=== PATIENT | female | born 1965 | race Caucasian/White ===

== ENCOUNTER 2016-06-20 10:25 | Inpatient (IN) | payer SELFPAY ==
[2016-06-20] VITALS (7 sets, daily range): BP systolic 101–121; BP diastolic 57–68; PULSE 64–78; RESP 16–18; TEMP 97.6–98.8; O2SAT 87–99
[~2016-06-20] VITALS: Ht 170.2 cm; Wt 70.0 kg
[~2016-06-20 10:25] MED LIST: BACT800T5 PO; CLIN1CAP6 PO; DIAZ10TA PO; DILA8TAB4 PO; SOMA350T PO
[2016-06-20] MEDS ORDERED: SODIUM CHLOR 0.9% 1000 ML INJ 1,000 ML IV SCH (11:29)
[2016-06-20] MEDS ORDERED: SODIUM CHLORIDE 0.9% FLUSH 10 ML FLUSH IV FLUSH PRN (11:30)
[2016-06-20] MEDS ORDERED: CLINDAMYCIN INJ 900 MG in SODIUM CHLORIDE 0.9% INJ 100 ML IV ONE (11:30)
--- NOTE | 2016-06-20 11:38 | PD ---
HPI Chief Complaint: Skin Problem Time Seen by Provider: 11:34 (Marques Foster) Time Seen by Provider: 11:18 (Shira Lehman DO) Travel History International Travel<30 days: No Contact w/Intl Traveler<30days: No Traveled to known affect area: No (Marques Foster) History of Present Illness HPI Patient comes in for evaluation of a abscess over left wrist since first noticed 3 days ago. Patient states she's been "poking and prodding" it, but denies doing anything else for it. Patient reports that she has been injecting Dilaudid and believes that she missed which is what caused the abscess. Patient denies any fevers, chest pain, shortness of breath, numbness or tingling anywhere. Patient has pain is aching/burning like around abscess radiates proximally. Pain is worse certain movement of the wrist. Patient states that she did vomit last night unusual for her. Patient reports she took Soma and injected Dilaudid today. Patient appears sleepy on exam but is answering questions appropriately. (Marques Foster) [facility] Past Medical History Arthritis: Yes (RA) Asthma: No Autoimmune Disease: No Blood Disorders: No Anxiety: Yes Depression: Yes Heart Rhythm Problems: No Cancer: No Cardiovascular Problems: No High Cholesterol: No Chemotherapy: No Chest Pain: No Congestive Heart Failure: No COPD: No Cerebrovascular Accident: No Diabetes: No Diminished Hearing: No Endocrine: No Gastrointestinal Disorders: No GERD: No Glaucoma: No Genitourinary: No Headaches: No Hepatitis: No Hiatal Hernia: No Hypertension: No Immune Disorder: No Implanted Vascular Access Dvce: No Kidney Stones: No Musculoskeletal: Yes (CHRONIC BACK PAIN and neck pain) Neurologic: No Psychiatric: Yes Reproductive: No Respiratory: No Integumentary: Yes (mrsa) Migraines: No Myocardial Infarction: No Radiation Therapy: No Renal Failure: No Seizures: No Sickle Cell Disease: No Sleep Apnea: No Thyroid Disease: No Ulcer: No Tetanus Vaccination: < 5 Years Influenza Vaccination: Yes ?: Not : 9 Para: 1 : 8 (Marques Foster) Past Surgical History Abdominal Surgery: No AICD: No Appendectomy: No Arteriovenous Shunt: No Cardiac Surgery: No Cholecystectomy: No Ear Surgery: No Endocrine Surgery: No Eye Surgery: No Genitourinary Surgery: No Gynecologic Surgery: Yes (fibroid tumor removed, HYSTERECTOMY) Hysterectomy: Yes (partial) Insulin Pump: No Joint Replacement: Yes Neurologic Surgery: No Oral Surgery: No Pacemaker: No Thoracic Surgery: No Other Surgery: Yes (FIBROID TUMOR REMOVED.,left arm/wrist) (Marques Foster) Social History Alcohol Use: No Tobacco Use: Yes (1/2 ppd) Substance Use: Yes (dilaudid, soma took them today) (Marques Foster) Allergies-Medications (Allergen,Severity, Reaction): Coded Allergies: Morphine (Verified Allergy, Unknown, SWELLING, 06/20/16) *MDRO Multi-Drug Resistant Organism (Unverified Adverse Reaction, Unknown , 06/20/16) MRSA (arm wound) - 01/2009 & 02/2014 Reported Meds & Prescriptions Reported Meds & Active Scripts Active Active Prescriptions or Reported Medications Unobtainable (Shira Lehman DO) Review of Systems Except as stated in HPI: all other systems reviewed are Neg (Marques Foster ) Physical Exam Narrative GENERAL: Well-developed, overly nourished, in no acute distress, and non-ill appearing. Sleeping on exam but answers questions appropriately. SKIN: Patient is a drained abscess noted on the dorsal aspect of her left wrist is mildly tender to palpation. There is mild surrounding cellulitis. There is no crepitus or fluctuation. There is no obvious foreign body. HEAD: Atraumatic. Normocephalic. EYES: Pupils equal and round. EOMI. No scleral icterus. No injection or drainage. ENT: No nasal bleeding or discharge. Mucous membranes pink and moist. NECK: Trachea midline. Supple. No nuclear rigidity. CARDIOVASCULAR: Regular rate and rhythm. No murmur appreciated. Radial pulses 2+, tach, and equal bilaterally. Capillary refill less than 2 seconds. RESPIRATORY: No accessory muscle use. No respiratory distress. Clear to auscultation. Breath sounds equal bilaterally. Patient is noted to be 97% on room air. GASTROINTESTINAL: Abdomen soft, non-tender, nondistended. Hepatic and splenic margins not palpable. Normal bowel sounds 4. No pulsatile mass. MUSCULOSKELETAL: No obvious deformities. No clubbing. No cyanosis. No edema. Full range of motion. Wrist: FROM and equal BL with passive flexion, extension, and pronation/supination. Capillary refill less than 2 seconds distal to injury and equal BL. FROM distal to injury and equal BL. Strength distal to injury equal BL. NV intact distal to injury. Flexion and extension of thumb equal BL. Equal strength and movement with abduction/adductions of BL fingers. Laundry Tub Maker strength equal BL. No tenderness to the anatomical snuffbox. Home monitoring device noted right lower extremity. NEUROLOGICAL: Awake and alert. No obvious cranial nerve deficits. Motor grossly within normal limits. Normal speech. PSYCHIATRIC: Appropriate mood and affect; insight and judgment normal. (Marques Foster) Data Data Last Documented VS Vital Signs Date Time Temp Pulse Resp B/P Pulse Ox O2 Delivery O2 Flow Rate FiO2 06/20/16 12:42 71 18 99 06/20/16 11:28 107/57 Room Air 06/20/16 10: 97.6 (Shira Lehman DO) Orders Basic Metabolic Panel (Bmp) (06/20/16 11:29) Complete Blood Count With Diff (06/20/16 11:29) Iv Access Insert/Monitor (06/20/16 11:29) Ecg Monitoring (06/20/16 11:29) Oximetry (06/20/16 11:29) Sodium Chlor 0.9% 1000 Ml Inj (Ns 1000 M (06/20/16 11:29) Sodium Chloride 0.9% Flush (Ns Flush) (06/20/16 11:30) Chest, Single Ap (06/20/16 11:29) Wrist, Complete ([id number]) (06/20/16 ) Wound Culture And Gram Stain (06/20/16 11:29) Clindamycin Inj (Cleocin Inj) (06/20/16 11:30) Westergren Sedimentation Rate (06/20/16 13:12) C-Reactive Protein (Crp) (06/20/16 13:12) Blood Culture (06/20/16 13:48) Ob/Psych Drug Screen, Urine (06/20/16 13:48) Admit Order (Ed Use Only) (06/20/16 13:50) Complete Blood Count With Diff (06/21/16 06:00) Consult Pt Eval & Treat (06/20/16 13:49) Code Status (06/20/16 13:49) Scd Bilateral/Knee High JING.QSHIFT (06/20/16 13:49) Nursing Bedside Swallow Assess .ONCE (06/20/16 13:49) Ur Bath Salts (06/20/16 11:30) Ur Heroin (06/20/16 11:30) Ur K2 Spice (06/20/16 11:30) Ur Ecstasy (06/20/16 11:30) Ur Methadone (06/20/16 11:30) Phencyclidine Urine (Pcp) (06/20/16 11:30) (Shira Lehman DO) Labs Laboratory Tests Test 06/20/16 11:30 White Blood Count 6.1 TH/MM3 Red Blood Count 3.97 MIL/MM3 Hemoglobin 11.6 GM/DL Hematocrit 34.7 % Mean Corpuscular Volume 87.2 FL Mean Corpuscular Hemoglobin 29.1 PG Mean Corpuscular Hemoglobin 33.4 % Concent Red Cell Distribution Width 14.6 % Platelet Count 152 TH/MM3 Mean Platelet Volume 9.8 FL Neutrophils (%) (Auto) 62.2 % Lymphocytes (%) (Auto) 21.4 % Monocytes (%) (Auto) 10.4 % Eosinophils (%) (Auto) 5.5 % Basophils (%) (Auto) 0.5 % Neutrophils # (Auto) 3.8 TH/MM3 Lymphocytes # (Auto) 1.3 TH/MM3 Monocytes # (Auto) 0.6 TH/MM3 Eosinophils # (Auto) 0.3 TH/MM3 Basophils # (Auto) 0.0 TH/MM3 CBC Comment DIFF FINAL Differential Comment Erythrocyte Sedimentation Rate 37 mm/hr Sodium Level 139 MEQ/L Potassium Level 4.4 MEQ/L Chloride Level 102 MEQ/L Carbon Dioxide Level 31.4 MEQ/L Anion Gap 6 MEQ/L Blood Urea Nitrogen 15 MG/DL Creatinine 0.81 MG/DL Estimat Glomerular Filtration 74 ML/MIN Rate Random Glucose 89 MG/DL Calcium Level 9.2 MG/DL C-Reactive Protein 4.90 MG/DL B-Type Natriuretic Peptide 19 PG/ML Urine Opiates Screen POS Urine Barbiturates Screen NEG Urine Amphetamines Screen NEG Urine Benzodiazepines Screen POS Urine Cocaine Screen NEG Urine Cannabinoids Screen NEG (Shira Lehman DO) [facility] Medical Decision Making Medical Screen Exam Complete: Yes Emergency Medical Condition: Yes Differential Diagnosis Abscess, cellulitis, aspiration pneumonia, electrolyte abnormality, other Narrative Course On re-evaluation patient is sleeping comfortably in bed in no acute distress. O2 is noted to 100% in room air. Patient is awoken easily denies any known recent Narcan administration or current antibiotic use. Discussed patient with Dr. Lehman, who saw and evaluate patient recommends checking a sedimentation rate, CRP, and admitting patient for observation. Discussed all findings and plan care of patient was agreeable for admission. All questions were answered. Patient remained stable through ED course. (Marques Foster) Diagnosis Primary Impression: Pulmonary edema Qualified Code: J81.0 - Acute pulmonary edema Additional Impressions: Abscess IVDU (intravenous drug user) Admitting Information Admitting Physician Requests: Observation (Marques Foster) Scripts Unable to Obtain Active Prescriptions or Reported Meds Condition: Stable Marques Foster June 20, 2016 11:38 Shira Lehman DO June 20, 2016 21:28
[2016-06-20 12:04] LABS: AUTOMATED NEUTROPHIL # 3.8 TH/MM3 (1.8-7.7); BASOPHIL % 0.5 % (0.0-2.0); EOSINOPHIL # 0.3 TH/MM3 (0-0.4); EOSINOPHIL % 5.5 % (0.0-4.0); HEMATOCRIT 34.7 % (35.0-46.0); HEMO FLAGS DIFF FINAL; LYMPH % 21.4 % (9.0-44.0); LYMPHOCYTE # 1.3 TH/MM3 (1.0-4.8); MEAN CELL VOLUME 87.2 FL (80.0-100.0); MEAN CORPUSCULAR HEMOGLOBIN 29.1 PG (27.0-34.0); MEAN CORPUSCULAR HGB CONC 33.4 % (32.0-36.0); MONO % 10.4 % (0.0-8.0); NEUT % 62.2 % (16.0-70.0); PLATELET COUNT 152 TH/MM3 (150-450); RED BLOOD COUNT 3.97 MIL/MM3 (4.00-5.30); RED CELL DISTRIBUTION WIDTH 14.6 % (11.6-17.2); WHITE BLOOD COUNT 6.1 TH/MM3 (4.0-11.0)
--- NOTE | 2016-06-20 12:06 | RADRPT ---
EXAM DATE/TIME: 06/20/2016 11:53 [facility] COMPARISON: CHEST SINGLE AP, May 26, 2015, 12:59. INDICATIONS : Vomiting since last night. MEDICAL HISTORY : Methicillin-resistant Staphylococcus aureus. Hepatitis. SURGICAL HISTORY : Hysterectomy. Fusion, cervical. ENCOUNTER: Initial ACUITY: 1 day PAIN SCORE: 8/10 LOCATION: Bilateral chest FINDINGS: Study is abnormal. There is background of interstitial changes in both lungs. Heart is appropriate in size. There is no consolidation or pneumothorax. CONCLUSION: Abnormal chest with prominent interstitium. Considerations would include cardiogenic pulmonary edema , noncardiogenic pulmonary edema, and a inflammatory process. Alan Bae MD FACR on June 20, 2016 at 12:03 Board Certified Radiologist. This report was verified electronically.
--- NOTE | 2016-06-20 12:07 | RADRPT ---
EXAM DATE/TIME: 06/20/2016 11:57 [facility] COMPARISON: No previous studies available for comparison. INDICATIONS : Posterior left wrist wound for 3 days. MEDICAL HISTORY : Methicillin-resistant Staphylococcus aureus. Hepatitis. SURGICAL HISTORY : Hysterectomy. Fusion, cervical. ENCOUNTER: Initial ACUITY: 3 days PAIN SCORE: 8/10 LOCATION: Left wrist. FINDINGS: There is generalized soft tissue swelling without fracture or radiopaque foreign body. CONCLUSION: Generalized soft tissue swelling. Alan Bae MD FACR on June 20, 2016 at 12:04 Board Certified Radiologist. This report was verified electronically.
[2016-06-20 12:17] LABS: BICARBONATE 31.4 MEQ/L (21.0-32.0); POTASSIUM 4.4 MEQ/L (3.5-5.1)
--- NOTE | 2016-06-20 13:58 | HHI.HP ---
[facility] Service Family Medicine Primary Care Physician No Primary Care Physician Admission Diagnosis Abscess and cellulitis Diagnoses: International Travel<30 Days: No Contact w/Intl Traveler<30days: No Known Affected Area: No History of Present Illness 51 year old female IV drug user admitted for left wrist abscess and cellulitis. She is a poor historian due to inattention and drowsiness; admits to taking Soma today and Xanax yesterday. She states she came to the ER not for the infection but for difficulty swallowing, nausea, vomiting, and shortness of breath. She states it began "with dinner" but she is not able to tell me how many days ago that was but since then she has been scared to drink or eat. As far as the infection, she states it started out as a small pustule about three days ago and has since worsened and turned into an abscess. She states she squeezed it and yellow, malodorous pus was expelled with force. She endorses chills unsure if she's had fever; she denies chest pain, palpitations, lower extremity edema, or rash anywhere else. She admits to IV Dilaudid use but is vague about frequency; she believes the last use was about four days ago and she uses maybe once a week. Last injection site was left wrist; she states she doesn't have any more veins to use. She denies injecting in her feet or ankles. The only other drugs she admits to are Soma and Xanax as stated prior. Denies any other opiates or cocaine. Currently she denies pain. Review of Systems Constitutional: COMPLAINS OF: Chills, DENIES: Fever Eyes: DENIES: Blurred vision Respiratory: COMPLAINS OF: Shortness of breath, DENIES: Cough Cardiovascular: COMPLAINS OF: Palpitations, Dyspnea on Exertion, DENIES: Chest pain, Syncope, Lower Extremity Edema Gastrointestinal: COMPLAINS OF: Nausea, Vomiting, DENIES: Abdominal pain, Black stools, Bloody stools, Diarrhea Musculoskeletal: DENIES: Joint pain Integumentary: DENIES: Rash Hematologic/lymphatic: COMPLAINS OF: Bruising Neurologic: COMPLAINS OF: Headache, DENIES: Seizures Past Family Social History Past Medical History IV drug use Cervical spondylosis Past Surgical History Uterine fibroidectomy Reported Medications None prescribed Obtains Soma and Xanax from her sister Allergies: Coded Allergies: Morphine (Verified Allergy, Unknown, SWELLING, 06/20/16) *MDRO Multi-Drug Resistant Organism (Unverified Adverse Reaction, Unknown , 06/20/16) MRSA (arm wound) - 01/2009 & 02/2014 Active Ordered Medications Acetaminophen (Tylenol) 500 mg Q4H PRN PO; Start 06/20/16 at 14:00 Clindamycin Phosphate 900 mg/ Sodium Chloride 106 ml @ 200 mls/hr ONCE ONCE IV Last administered on 06/20/16 12:49; Admin Dose 200 MLS/HR; Start 06/20/16 at 11:30; Stop 06/20/16 at 12:01; Status DC Ibuprofen (Motrin) 600 mg Q8HR PO; Start 06/20/16 at 14:00 Pharmacy Profile Note (Vancomycin Consult Pharmacy) 0 ml @ 0 mls/hr UNSCH OTHER ; Start 06/20/16 at 14:00 Sodium Chloride (NS 1000 ml Inj) 1,000 ml @ 1,000 mls/hr Q1H IV Last administered on 06/20/16 12:22; Admin Dose 1,000 MLS/HR; Start 06/20/16 at 11: 29; Stop 06/20/16 at 12:28; Status DC Sodium Chloride 2 ml 2 ml UNSCH PRN IV FLUSH; Start 06/20/16 at 11:30 Vancomycin HCl 1000 mg/Sodium Chloride 250 ml @ 250 mls/hr Q24H IV; Start 06/20 at 14:00 Family History Mother: alive, HTN Father: alive, alcoholism Social History Lives with friend EtOH: denies Tobacco: 1 PPD x 40 years Illicit drug use: IV Dilaudid, Soma, Xanax Physical Exam Vital Signs Vital Signs Date Time Temp Pulse Resp B/P Pulse Ox O2 Delivery O2 Flow Rate FiO2 06/20/16 12:42 71 18 99 06/20/16 11:28 73 16 107/57 97 Room Air 06/20/16 10:28 97.6 78 18 105/58 95 Physical Exam GENERAL: Drowsy, disheveled female sitting up in bed in no acute distress. SKIN/LYMPH: Multiple injection sites over arms. Radial aspect of left dorsal wrist with open abscess and surrounding erythema; purulent material able to be expressed. No epitrochlear or axillary lymphadenopathy. HEENT: Atraumatic. Normocephalic. Pinpoint pupils bilaterally. Opens eyes sluggishly. Extraocular motions intact. No scleral icterus. No injection or drainage. Nose without bleeding or purulent drainage. Throat without erythema, tonsillar hypertrophy or exudate. Mucous membranes dry. Uvula midline. Airway patent. NECK: Trachea midline. No JVD or lymphadenopathy. Supple, nontender, no meningeal signs. CARDIOVASCULAR: Regular rate and rhythm with 1/6 systolic ejection murmur. RESPIRATORY: Left basilar crackles otherwise clear without wheezes. GASTROINTESTINAL: Abdomen soft, nontender, nondistended. No hepatosplenomegaly or palpable masses. No guarding. MUSCULOSKELETAL: No lower extremity edema. Able to wiggle all fingers and make a first. Electronic monitoring device over right ankle. NEUROLOGICAL: Drowsy. Slurred speech. Laboratory Laboratory Tests Test 06/20/16 11:30 White Blood Count 6.1 Red Blood Count 3.97 Hemoglobin 11.6 Hematocrit 34.7 Mean Corpuscular Volume 87.2 Mean Corpuscular Hemoglobin 29.1 Mean Corpuscular Hemoglobin 33.4 Concent Red Cell Distribution Width 14.6 Platelet Count 152 Mean Platelet Volume 9.8 Neutrophils (%) (Auto) 62.2 Lymphocytes (%) (Auto) 21.4 Monocytes (%) (Auto) 10.4 Eosinophils (%) (Auto) 5.5 Basophils (%) (Auto) 0.5 Neutrophils # (Auto) 3.8 Lymphocytes # (Auto) 1.3 Monocytes # (Auto) 0.6 Eosinophils # (Auto) 0.3 Basophils # (Auto) 0.0 CBC Comment DIFF FINAL Differential Comment Erythrocyte Sedimentation Rate 37 Sodium Level 139 Potassium Level 4.4 Chloride Level 102 Carbon Dioxide Level 31.4 Anion Gap 6 Blood Urea Nitrogen 15 Creatinine 0.81 Estimat Glomerular Filtration 74 Rate Random Glucose 89 Calcium Level 9.2 Date/Time Procedure Status Source Growth 06/20/16 11:30 Gram Stain Received Wound Wrist Pending 06/20/16 11:30 Wound Culture Received Wound Wrist Pending Result Diagram: 06/20/16 1130 06/20/16 1130 Imaging Chest X-Ray 06/20/16 1129 Signed Impressions: Service Date/Time: Monday, June 20, 2016 11:53 - CONCLUSION: Abnormal chest with prominent interstitium. Considerations would include cardiogenic pulmonary edema, noncardiogenic pulmonary edema, and a inflammatory process. Alan Bae MD FACR Wrist X-Ray 06/20/16 0000 Signed Impressions: Service Date/Time: Monday, June 20, 2016 11:57 - CONCLUSION: Generalized soft tissue swelling. Alan Bae MD FACR Septic Shock Reassessment Heart: Regular rate and rhythm, Murmur Lungs: Crackles Skin: Warm Assessment and Plan Assessment and Plan 51 year old female IV drug user admitted for left wrist abscess and cellulitis. She does not meet sepsis criteria. She will be treated with IV vancomycin while blood and wound cultures are pending. Code Status FULL Discussed Condition With Dr. Cabral and Dr. Tavera Problem List: (1) Abscess Status: Acute Plan: Left dorsoradial wrist with open, draining abscess. Blood and wound cultures obtained. Wrist XR showing soft tissue swelling. - Slightly elevated ESR otherwise normal white count, afebrile, no tachycardia, or fever - Received Clindamycin x 1 in the ER - Vancomycin 1 g IV Q12H with pharm consult - Motrin 600 mg PO Q8H scheduled - Tylenol PRN fever - Toradol 30 mg IV Q6H PRN breakthrough pain - Avoid narcotics (2) Pulmonary edema Status: Acute Plan: CXR with interstitial changes in both lungs concerning for pulmonary edema and she did endorse some symptoms of shortness of breath. Patient maintaining adequate oxygenation on room air. Exam notable for crackles. Unclear etiology. - Lasix 40 mg PO x 1 - Check BNP - 1/6 ANA murmur on exam in an IV drug user. Check 2D echo (3) Nutrition, metabolism, and development symptoms Status: Acute Plan: - Fluids: Tolerating PO - Electrolytes: WNL - Nutrition: Regular diet - DVT prophylaxis: Lovenox 40 mg SQ daily Physician Certification 2 Midnight Certification Type: Admission for Inpatient Services Order for Inpatient Services The services are ordered in accordance with Medicare regulations or non- Medicare payer requirements, as applicable. In the case of services not specified as inpatient-only, they are appropriately provided as inpatient services in accordance with the 2-midnight benchmark. Estimated LOS (days): 3 days is the estimated time the patient will need to remain in the hospital, assuming treatment plan goals are met and no additional complications. Post-Hospital Plan: Vivian Grayson MD June 20, 2016 13:58
[2016-06-20] MEDS ORDERED: Vancomycin Consult Pharmacy 1 EA OTHER SCH (14:00)
[2016-06-20] MEDS ORDERED: ACETAMINOPHEN 500 MG CPLT PO PRN (14:00)
[2016-06-20] MEDS ORDERED: VANCOMYCIN INJ 1,000 MG in SODIUM CHLOR 0.9% 250 ML INJ 250 ML IV SCH (14:00)
[2016-06-20 14:05] LABS: AMPHETAMINE, URINE NEG (NEG); BARBITURATES, URINE NEG (NEG); COCAINE, URINE NEG (NEG)
[2016-06-20] MEDS ORDERED: KETOROLAC TROMETHAMINE 30 MG/ML (IVP) VIAL IV PUSH PRN (14:30)
[2016-06-20] MEDS ORDERED: FUROSEMIDE 40 MG TAB PO ONE (14:30)
[2016-06-20] MEDS: IBUPROFEN 600 MG TAB PO SCH ×2 (14:46→21:06)
[2016-06-20] MEDS ORDERED: ENOXAPARIN SODIUM 40 MG/0.4 ML SYRINGE SQ SCH (15:00)
--- NOTE | 2016-06-20 17:48 | EC ---
Study Study Date:06/20/2016 STUDY CONCLUSIONS SUMMARY - Left ventricle: The cavity size was normal. Wall thickness was normal. Systolic function was normal. The estimated ejection fraction was 60%. Wall motion was normal; there were no regional wall motion abnormalities. - Tricuspid valve: Mild regurgitation. - Pulmonary arteries: PA peak pressure: 31mm Hg (S). If LV function is below 40, please consider prescribing an ACEI or ARB or document rationale for non-use. PROCEDURE DATA STUDY STATUS: Elective. Procedure: Transthoracic echocardiography. Image quality was good. Scanning was performed from the parasternal, apical, and subcostal acoustic windows. Study completion: The patient tolerated the procedure well. Transthoracic echocardiography. M-mode, complete 2D, complete spectral Doppler, and color Doppler. Height: Height: 67in. Weight: Weight: 144.7lb. Body mass index: BMI: 22.7kg/m^2. Body surface area: BSA: 1.76m^2. Patient status: Inpatient. CARDIAC ANATOMY LEFT VENTRICLE: The cavity size was normal. Wall thickness was normal. Systolic function was normal. The estimated ejection fraction was 60%. Wall motion was normal; there were no regional wall motion abnormalities. AORTIC VALVE: Trileaflet; normal thickness leaflets. Doppler: Transvalvular velocity was within the normal range. There was no stenosis. No regurgitation. Valve area: 1.32cm^2(VTI). Indexed valve area: 0.75cm^2/m^2 (VTI). Valve area: 1.27cm^2 (Vmax). Indexed valve area: 0.72cm^2/m^2 (Vmax). Mean gradient: 5mm Hg (S). AORTA: Aortic root: The aortic root was normal in size. MITRAL VALVE: Structurally normal valve. Doppler: Transvalvular velocity was within the normal range. There was no evidence for stenosis. Trace regurgitation. Peak gradient: 2mm Hg (D). LEFT ATRIUM: The atrium was normal in size. RIGHT VENTRICLE: The cavity size was normal. Wall thickness was normal. PULMONIC VALVE: Doppler: Transvalvular velocity was within the normal range. There was no evidence for stenosis. No regurgitation. TRICUSPID VALVE: Structurally normal valve. Doppler: Transvalvular velocity was within the normal range. Mild regurgitation. PULMONARY ARTERY: The main pulmonary artery was normal-sized. Systolic pressure was within the normal range. RIGHT ATRIUM: The atrium was normal in size. PERICARDIUM: There was no pericardial effusion. SYSTEMIC VEINS: Inferior vena cava: The vessel was normal in size. Patient weight: 144.7lb _Ejection fraction:_ 65-75% _Fractional shortening:_ 32% up to 5Kg 5-11.5Kg 11.6-22.9Kg 23-45Kg 45-57Kg Aortic Root 7-13 <17 13-22 17-27 17-27 LA diam 6-13 <23 24-38 33-47 37-40 RVID 10-17 7-15 7-15 7-18 8-17 LVIDd 12-22 <32 24-38 33-47 37-40 LVPW 2-4 3-6 5-7 6-8 7-8 IVS 2-4 3-6 5-7 6-8 7-8 BASIC MEASUREMENTS ADULT NORMAL Left ventricle LV internal dimension, ED, chordal 46.7 mm 43-52 level, PLAX LV internal dimension, ES, chordal 34.4 mm 23-38 level, PLAX Fractional shortening, chordal level, *26 % >29 PLAX LV posterior wall thickness, ED 9.22 mm IVS/LVPW ratio, ED 1 <1.3 Ventricular septum Septal thickness, ED 9.22 mm Aortic valve Leaflet separation 18 mm 15-26 Aorta Root diameter, ED 32 mm Left atrium Anterior-posterior dimension 31 mm Anterior-posterior dimension index 1.76 cm/m^2 <2.2 BASIC MEASUREMENTS ADULT NORMAL Aortic valve Leaflet separation 18 mm 15-26 DOPPLER MEASUREMENTS ADULT NORMAL Main pulmonary artery Pressure, S *31 mm Hg =30 Aortic valve Peak velocity, S 154 cm/s Mean velocity, S 103 cm/s VTI, S 30.1 cm Mean gradient, S 5 mm Hg Valve area, VTI 1.32 cm^2 Valve area index, VTI 0.75 cm^2/m^2 Valve area, Vmax 1.27 cm^2 Valve area index, Vmax 0.72 cm^2/m^2 Mitral valve Peak E-wave velocity 75 cm/s Peak A-wave velocity 51.3 cm/s Deceleration time *239 ms 150-230 Peak gradient, D 2 mm Hg Peak E/A ratio 1.5 Tricuspid valve Regurgitant peak velocity 233 cm/s Peak RV-RA gradient, S 22 mm Hg Maximal regurgitant velocity 233 cm/s Systemic veins Estimated CVP 10 mm Hg Right ventricle RV pressure, S *32 mm Hg <30 Pulmonic valve Peak velocity, S 60.2 cm/s LEGEND: Mean values are shown as u=mean value. Asterisk (*) ontiveros values outside specified normal range. Prepared and signed by Rochelle Hayden [id number]
[2016-06-20] MEDS: VANCOMYCIN INJ 1,000 MG in SODIUM CHLOR 0.9% 250 ML INJ 250 ML IV SCH (17:58)
[2016-06-21] MEDS: VANCOMYCIN INJ 1,000 MG in SODIUM CHLOR 0.9% 250 ML INJ 250 ML IV SCH (02:06)
[2016-06-21] MEDS: IBUPROFEN 600 MG TAB PO SCH ×2 (05:16→14:10)
[2016-06-21 05:38] VITALS: BP 118/68; PULSE 78; RESP 18; TEMP 98.4; O2SAT 97
[2016-06-21 08:12] VITALS: BP 128/77; PULSE 74; RESP 18; TEMP 97.7; O2SAT 96
--- NOTE | 2016-06-21 08:28 | HHI.FPPN ---
Subjective Remarks Pt seen and examined this morning. AFVSS. No acute events overnight. Reports she is feeling well. States abscess continued to drain overnight. Tolerating diet w/o nausea or vomiting. Denies CP, SOB, abdominal pain. No issues swallowing today. Wants to go home but understands she is not quite ready yet. Objective Vitals Vital Signs Date Time Temp Pulse Resp B/P Pulse Ox O2 Delivery O2 Flow Rate FiO2 06/21/16 08:12 97.7 74 18 128/77 96 06/21/16 06:21 16 06/21/16 05:38 98.4 78 18 118/68 97 06/20/16 23:48 98.4 64 18 121/68 97 06/20/16 19:53 98.8 69 18 111/62 97 06/20/16 17:06 97.6 69 18 101/61 96 06/20/16 16:11 70 16 111/58 95 06/20/16 15:46 20 06/20/16 12:42 71 18 99 06/20/16 11:28 73 16 107/57 97 Room Air 06/20/16 10:28 97.6 78 18 105/58 95 I/O 06/20/16 06/20/16 06/20/16 06/21/16 06/21/16 06/21/16 07:00 15:00 23:00 07:00 15:00 23:00 Intake Total 1400 ml Balance 1400 ml Intake Oral 400 ml IV Total 1000 ml # Voids 1 3 Result Diagram: 06/20/16 1130 06/20/16 1130 Imaging Chest X-Ray 06/20/16 1129 Signed Impressions: Service Date/Time: Monday, June 20, 2016 11:53 - CONCLUSION: Abnormal chest with prominent interstitium. Considerations would include cardiogenic pulmonary edema, noncardiogenic pulmonary edema, and a inflammatory process. Alan Bae MD FACR Wrist X-Ray 06/20/16 0000 Signed Impressions: Service Date/Time: Monday, June 20, 2016 11:57 - CONCLUSION: Generalized soft tissue swelling. Alan Bae MD FACR Objective Remarks GENERAL: Drowsy, disheveled female sitting up in bed in no acute distress. SKIN: Multiple injection sites over arms. Abscess covered; dressing clean and dry. HEENT: Atraumatic. Normocephalic. Pinpoint pupils bilaterally. Extraocular motions intact. No scleral icterus. No injection or drainage. Nose without bleeding or purulent drainage. HEART: Regular rate and rhythm with 1/6 systolic ejection murmur. LUNGS: CTAB without wheezes or crackles. ABDOMEN: Soft, NT, ND. MUSCULOSKELETAL: No lower extremity edema. Left fingers and hand edematous. Able to wiggle all fingers and make a first. [employer] Interleafer strength 5/5. Electronic monitoring device over right ankle. NEUROLOGICAL: Much more lucid today. Not drowsy. A/P Assessment and Plan 51 year old female IV drug user admitted for left wrist abscess and cellulitis. She does not meet sepsis criteria. She will be treated with IV vancomycin while blood and wound cultures are pending. Discharge Planning Anticipate D/C tomorrow if remains clinically stable, cultures resulted, and echocardiogram complete. Problem List: (1) Abscess Status: Acute Plan: Left dorsoradial wrist with open, draining abscess. Blood and wound cultures pending. Wrist XR showing soft tissue swelling. - Slightly elevated ESR otherwise normal white count, afebrile, no tachycardia, or fever - Received Clindamycin x 1 in the ER - Vancomycin 1 g IV Q12H with pharm consult - Motrin 600 mg PO Q8H scheduled - Tylenol PRN fever - Toradol 30 mg IV Q6H PRN breakthrough pain - Avoid narcotics (2) Pulmonary edema Status: Acute Plan: CXR on admission with interstitial changes in both lungs concerning for pulmonary edema and she did endorse some symptoms of shortness of breath. Received Lasix 40 mg PO x 1. Patient maintaining adequate oxygenation on room air and BNP WNL. Crackles and shortness of breath have resolved. - 1/6 ANA murmur on exam in an IV drug user. Check 2D echo - Repeat CXR today (3) Transaminitis Status: Acute Plan: LFTs elevated with AST 85 and ALT 76. Patient denies EtOH; likely from IVDU. Check hepatitis panel; hep A, B, and C have been reactive in 2015. (4) Nutrition, metabolism, and development symptoms Status: Acute Plan: - Fluids: Tolerating PO - Electrolytes: WNL - Nutrition: Regular diet - DVT prophylaxis: Lovenox 40 mg SQ daily sdw Dr. Pereira, Dr. Cabral, and Dr. Liang Vivian Alford MD June 21, 2016 08:28
[2016-06-21 08:47] LABS: AUTOMATED NEUTROPHIL # 4.8 TH/MM3 (1.8-7.7); BASOPHIL # 0.1 TH/MM3 (0-0.2); BASOPHIL % 0.9 % (0.0-2.0); EOSINOPHIL # 0.4 TH/MM3 (0-0.4); EOSINOPHIL % 5.2 % (0.0-4.0); HEMATOCRIT 38.7 % (35.0-46.0); LYMPH % 26.2 % (9.0-44.0); LYMPHOCYTE # 2.1 TH/MM3 (1.0-4.8); MEAN CELL VOLUME 88.5 FL (80.0-100.0); MEAN CORPUSCULAR HEMOGLOBIN 28.4 PG (27.0-34.0); MEAN CORPUSCULAR HGB CONC 32.1 % (32.0-36.0); MONO % 9.2 % (0.0-8.0); NEUT % 58.5 % (16.0-70.0); PLATELET COUNT 154 TH/MM3 (150-450); RED BLOOD COUNT 4.37 MIL/MM3 (4.00-5.30); RED CELL DISTRIBUTION WIDTH 14.4 % (11.6-17.2); WHITE BLOOD COUNT 8.2 TH/MM3 (4.0-11.0)
[2016-06-21 09:12] LABS: ALKALINE PHOSPHATASE 126 U/L (45-117); ALT (GPT) 76 U/L (10-53); ANION GAP 5 MEQ/L (5-15); AST (GOT) 85 U/L (15-37); BICARBONATE 32.3 MEQ/L (21.0-32.0); BLOOD UREA NITROGEN 11 MG/DL (7-18); CHLORIDE 105 MEQ/L (98-107); GLOMERULAR FILTRATION RATE 66 ML/MIN (>89); POTASSIUM 4.4 MEQ/L (3.5-5.1); SODIUM (NA) 142 MEQ/L (136-145); TOTAL BILIRUBIN ADULT 0.2 MG/DL (0.2-1.0)
[2016-06-21 09:30] LABS: HEMO FLAGS AUTO DIFF
[2016-06-21 09:33] LABS: SCAN/DIFF AUTO DIFF CONFIRMED
[2016-06-21 11:20] VITALS: BP 109/62; PULSE 74; RESP 18; TEMP 98.2; O2SAT 95
--- NOTE | 2016-06-21 13:18 | RADRPT ---
EXAM DATE/TIME: 06/21/2016 12:15 [facility] COMPARISON: No previous studies available for comparison. INDICATIONS : Chest pain. MEDICAL HISTORY : Arthritis. Smoker. SURGICAL HISTORY : Hysterectomy. ENCOUNTER: Subsequent ACUITY: 2 days PAIN SCORE: 5/10 LOCATION: Bilateral upper chest FINDINGS: PA and lateral views of the chest demonstrate the lungs to be symmetrically aerated without evidence of mass, infiltrate or effusion. The cardiomediastinal contours are unremarkable. Osseous structure s are intact. CONCLUSION: 1. No active disease. Mild scoliosis. Sherman Velásquez MD on June 21, 2016 at 13:15 Board Certified Radiologist. This report was verified electronically.
[2016-06-22] MEDS ORDERED: PHARMACY ORDERED LAB ONE (02:45)
[2016-06-23 12:07] LABS: PHENCYCLIDINE URINE NEG (NEG)
[2016-06-23 12:08] LABS: BATH SALTS (MDPV) UR NEG (NEG); ECSTASY (MDMA) UR NEG (NEG); GABAPENTIN UR NEG (NEG); HEROIN (6-ACETYLMORPHINE) UR NEG (NEG); K2 SPICE UR NEG (NEG); OBMETHADONE UR NEG (NEG); OXYCODONE (PERCODAN) NEG (NEG)
[2016-06-23 12:09] LABS: HYDROMORPHONE U POS (NEG)
== END 2016-06-21 16:06 | disposition left against medical advice (07) | DRG 602 ==
LOC: NEPE 10:25 → NEDA 13:51 → OBSVTOIN 13:55 → NEPHCDU 16:11
PROVIDERS: ADMIT Family Medicine; ATTEND Family Medicine
DX: L02.414 Cutaneous abscess of left upper limb (principal); J81.0 Acute pulmonary edema; L03.114 Cellulitis of left upper limb; R74.0 Nonspecific elevation of levels of transaminase and lactic acid dehydrogenase [LDH]; M47.812 Spondylosis without myelopathy or radiculopathy, cervical region; R01.1 Cardiac murmur, unspecified; R13.10 Dysphagia, unspecified; F11.90 Opioid use, unspecified, uncomplicated; M06.9 Rheumatoid arthritis, unspecified; G89.29 Other chronic pain; F19.90 Other psychoactive substance use, unspecified, uncomplicated; F17.210 Nicotine dependence, cigarettes, uncomplicated; Z88.6 Allergy status to analgesic agent; Z88.1 Allergy status to other antibiotic agents; Z88.5 Allergy status to narcotic agent; Z88.8 Allergy status to other drugs, medicaments and biological substances
CPT/HCPCS: 71010; 71020; 73110; 80048; 80053; 80307; 83880; 85025; 85652; 86140; 87040; 87070; 87205; 93306; 96365; G0481; J1650; J1885; J3370; J7030; J7050

== ENCOUNTER 2016-07-10 18:46 | Emergency (ER) | payer SELFPAY ==
[~2016-07-10] VITALS: Ht 170.2 cm; Wt 72.0 kg
[2016-07-10 18:50] VITALS: BP 110/62; PULSE 64; RESP 17; TEMP 97.8; O2SAT 98
[2016-07-10] MEDS ORDERED: BACT800T5 PO (19:42)
[2016-07-10] MEDS ORDERED: CLIN1CAP5 PO (19:42)
--- NOTE | 2016-07-10 19:43 | PD ---
HPI Chief Complaint: Skin Problem Time Seen by Provider: 19:38 Travel History International Travel<30 days: No Contact w/Intl Traveler<30days: No Traveled to known affect area: No History of Present Illness HPI 51-year-old female presents to the emergency department by private transportation for evaluation of swelling and redness to the left forearm. Patient has history of previous abscesses. Patient recently hospitalized for abscess and cellulitis management as well as pulmonary edema. Patient with long -standing history of IV drug abuse. Patient denies fever chills nausea vomiting ascending erythema axillary lymphadenopathy tenderness and denies being diabetic. Patient states tetanus status is current. Patient denies injecting at this site. Patient has no obvious visible draining site or puncture wound although just distal this has a small area of spontaneous drainage. Patient states she does not want to have incision and drainage she has got this numerous times and refuses to have an I&D but is here specifically to receive a prescription for oral antibiotic. Patient states she is aware that the management of choice is to have incision and drainage but just cannot tolerated this time and refuses to go through I&D but will take antibiotic. Patient reports if she is not improving on antibiotic she will return and suffered an I&D. Pain is 8/10 in intensity. PFSH Past Medical History Narrative Medical Anxiety depression arthritis IV drug abuse recurrent abscesses hysterectomy multiple I&D's tobacco use IV drug abuse; medical record and nursing notes reviewed Arthritis: Yes (RA) Asthma: No Autoimmune Disease: No Blood Disorders: No Anxiety: Yes Depression: Yes Heart Rhythm Problems: No Cancer: No Cardiovascular Problems: No High Cholesterol: No Chemotherapy: No Chest Pain: No Congestive Heart Failure: No COPD: No Cerebrovascular Accident: No Diabetes: No Diminished Hearing: No Endocrine: No Gastrointestinal Disorders: No GERD: No Glaucoma: No Genitourinary: No Headaches: No Hepatitis: No Hiatal Hernia: No Hypertension: No Immune Disorder: No Implanted Vascular Access Dvce: No Kidney Stones: No Musculoskeletal: Yes (CHRONIC BACK PAIN and neck pain) Neurologic: No Psychiatric: Yes Reproductive: No Respiratory: No Integumentary: Yes (mrsa) Migraines: No Myocardial Infarction: No Radiation Therapy: No Renal Failure: No Seizures: No Sickle Cell Disease: No Sleep Apnea: No Thyroid Disease: No Ulcer: No ?: Not : 9 Para: 1 : 8 Past Surgical History Abdominal Surgery: No AICD: No Appendectomy: No Arteriovenous Shunt: No Cardiac Surgery: No Cholecystectomy: No Ear Surgery: No Endocrine Surgery: No Eye Surgery: No Genitourinary Surgery: No Gynecologic Surgery: Yes (fibroid tumor removed, HYSTERECTOMY) Hysterectomy: Yes (partial) Insulin Pump: No Joint Replacement: Yes Neurologic Surgery: No Oral Surgery: No Pacemaker: No Thoracic Surgery: No Other Surgery: Yes (FIBROID TUMOR REMOVED.,left arm/wrist) Social History Alcohol Use: No Tobacco Use: Yes (1PPD) Substance Use: No (HX IV DRUG USE) Allergies-Medications (Allergen,Severity, Reaction): Coded Allergies: Morphine (Verified Allergy, Unknown, SWELLING, 07/10/16) *MDRO Multi-Drug Resistant Organism (Unverified Adverse Reaction, Unknown , 07/10/16) MRSA (arm wound) - 01/2009 & 02/2014 Reported Meds & Prescriptions Reported Meds & Active Scripts Active Clindamycin (Clindamycin HCl) 150 Mg Cap 300 Mg PO Q6H 7 Days Bactrim DS (Sulfamethoxazole-Trimethoprim) 800-160 Mg Tab 1 Tab PO BID Review of Systems Except as stated in HPI: all other systems reviewed are Neg General / Constitutional: No: Fever, Chills HENT: No: Congestion Cardiovascular: No: Chest Pain or Discomfort Respiratory: No: Shortness of Breath Gastrointestinal: No: Nausea, Vomiting Genitourinary: No: Flank Pain Musculoskeletal: No: Myalgias, Arthralgias Skin: Positive Lumps Neurologic: No: Weakness Psychiatric: No: Anxiety Hematologic/Lymphatic: No: Lymph Node Enlargement Physical Exam Narrative GENERAL: Well-developed well-nourished female in no acute distress no respiratory distress SKIN: Warm and dry. HEAD: Normocephalic. EYES: No scleral icterus. No injection or drainage. NECK: Supple, trachea midline. No JVD or lymphadenopathy. CARDIOVASCULAR: Regular rate and rhythm without murmurs, gallops, or rubs. RESPIRATORY: Breath sounds equal bilaterally. No accessory muscle use. GASTROINTESTINAL: Abdomen soft, non-tender, nondistended. MUSCULOSKELETAL: No cyanosis, or edema. Attention left upper extremity no axillary lymphadenopathy no ascending erythema focal area of erythema with fluctuance and pointing area of induration distal radial forearm; distal to this patient's neurovascular tendon intact with brisk capillary refill less than 2 seconds per digit and thumb apposition intact. BACK: Nontender without obvious deformity. No CVA tenderness. Data Data Last Documented VS Vital Signs Date Time Temp Pulse Resp B/P Pulse Ox O2 Delivery O2 Flow Rate FiO2 07/10/16 18:50 97.8 64 17 110/62 98 MDM Medical Decision Making Medical Screen Exam Complete: Yes Emergency Medical Condition: Yes Medical Record Reviewed: Yes Differential Diagnosis Abscess, cellulitis, foreign body Narrative Course Patient with left forearm abscess and focal area of induration and cellulitis. Patient with history of recurrent IV drug abuse. Patient is afebrile without tachycardia. Patient is not diabetic. Patient refuses incision and drainage which is the next proper step for this patient. Patient states she's only here for oral antibiotics and refuses to undergo procedural intervention. Patient reports that she is aware that should this fail she should return to the emergency room for I&D at that time. Discussed in detail the management of an abscess is incision and drainage. Patient reports that she understands this but refuses I&D at this time. Patient is given prescription for oral antibiotic. Patient is encouraged to return immediately to the emergency department and she understands/identifies that she is not improving and needs to proceed with I&D. Diagnosis Primary Impression: Abscess of left forearm Additional Impression: Cellulitis of forearm, left Referrals: Primary Care Physician 2 days Patient Instructions: General Instructions Additional Instructions: Apply warm moist compresses to area Monitor temperature every 4 hours with thermometer take acetaminophen/Tylenol every 4 hours for fever 100.4F or greater and/or ibuprofen/Advil/Motrin every 6 -8 hours as needed for fever 100.4F or greater Complete course of antibiotic Follow-up with your primary care provider Return to the emergency department for any concerns as needed Recommend two-day wound check or sooner if there is increased redness swelling fever or any concerns. Med/Other Pt SpecificInfo: Prescription(s) given Scripts Clindamycin 150 Mg [id number] Mg PO Q6H 7 Days Ref 0 Prov:Betty Canela MD 07/10/16 Sulfamethoxazole-Trimethoprim (Bactrim DS)800-160 Mg Tab1 Tab PO BID #20 TAB Ref 0 Prov:Betty Canela MD 07/10/16 Disposition: 01 DISCHARGE HOME Condition: Stable Betty Canela MD July 10, 2016 19:43
== END 2016-07-10 20:09 | disposition home or self-care (01) ==
LOC: PHEFT 18:46
DX: L02.414 Cutaneous abscess of left upper limb (principal); L03.114 Cellulitis of left upper limb; F19.10 Other psychoactive substance abuse, uncomplicated; M06.9 Rheumatoid arthritis, unspecified; F41.9 Anxiety disorder, unspecified; F32.9 Major depressive disorder, single episode, unspecified; F17.200 Nicotine dependence, unspecified, uncomplicated; Z79.899 Other long term (current) drug therapy; Z88.5 Allergy status to narcotic agent
CPT/HCPCS: 99284

== ENCOUNTER 2016-08-15 14:40 | Inpatient (IN) | payer OTHER ==
[~2016-08-15] VITALS: Ht 170.2 cm; Wt 74.6 kg
[~2016-08-15 14:40] MED LIST changes: +CLIN1CAP5 PO; -CLIN1CAP6 PO; -DIAZ10TA PO; -DILA8TAB4 PO; -SOMA350T PO
[2016-08-15 14:42] VITALS: BP 122/66; PULSE 84; RESP 18; TEMP 102.2; O2SAT 96
--- NOTE | 2016-08-15 15:24 | PD ---
Physical Exam Time Seen by Provider: 15:23 Narrative Pt presents to the ED for evaluation of skin infection on left hand and right arm for 1 week. Admits to history of IVDU. Patient has a fever of 102 degrees F. Otherwise VS within normal limits. Awaiting bed placement. Data Data Last Documented VS Vital Signs Date Time Temp Pulse Resp B/P Pulse Ox O2 Delivery O2 Flow Rate FiO2 08/15/16 14:42 102.2 84 18 122/66 96 Room Air MDM Supervised Visit with REN: Adali Cruz Aug 15, 2016 15:24
[2016-08-15] MEDS ORDERED: LIDOCAINE 1%/EPINEPHrine 1:100,000 SOLN 20 ML VIAL INFIL ONE (16:15)
[2016-08-15] MEDS ORDERED: VANCOMYCIN INJ 1,000 MG in SODIUM CHLOR 0.9% 250 ML INJ 250 ML IV ONE (16:15)
[2016-08-15] MEDS ORDERED: SODIUM CHLOR 0.9% 1000 ML INJ 100 ML IV ONE (16:15)
[2016-08-15] MEDS ORDERED: PIPERACIL-TAZO 3.375 GM PREMIX 50 ML IV ONE (16:15)
[2016-08-15] MEDS ORDERED: SODIUM CHLOR 0.9% 1000 ML INJ 1,000 ML IV ONE ×2 (16:15)
--- NOTE | 2016-08-15 16:36 | PD ---
HPI Chief Complaint: Skin Problem Time Seen by Provider: 16:00 Travel History International Travel<30 days: No Contact w/Intl Traveler<30days: No Traveled to known affect area: No History of Present Illness HPI This is a 51-year-old female with history of IV drug abuse. She presents for evaluation of fevers, bilateral arm redness and swelling, left leg redness. Symptoms started 1 week ago. Pain is a throbbing pain, constant, worse with palpation. She has been squeezing at some of the areas and she has had some purulent drainage. She reports that she last used IV drugs 1 month ago. Denies any chest pain or shortness of breath, nausea or vomiting, diarrhea or constipation, abdominal pain. She has no other complaints at this time. PFSH Past Medical History Arthritis: Yes (RA) Asthma: No Autoimmune Disease: No Blood Disorders: No Anxiety: Yes Depression: Yes Heart Rhythm Problems: No Cancer: No Cardiovascular Problems: No High Cholesterol: No Chemotherapy: No Chest Pain: No Congestive Heart Failure: No COPD: No Cerebrovascular Accident: No Diabetes: No Diminished Hearing: No Endocrine: No Gastrointestinal Disorders: No GERD: No Glaucoma: No Genitourinary: No Headaches: No Hepatitis: No Hiatal Hernia: No Hypertension: No Immune Disorder: No Implanted Vascular Access Dvce: No Kidney Stones: No Musculoskeletal: Yes (CHRONIC BACK PAIN and neck pain) Neurologic: No Psychiatric: Yes Reproductive: No Respiratory: No Integumentary: Yes (mrsa) Migraines: No Myocardial Infarction: No Radiation Therapy: No Renal Failure: No Seizures: No Sickle Cell Disease: No Sleep Apnea: No Thyroid Disease: No Ulcer: No ?: Not : 9 Para: 1 : 8 Past Surgical History Abdominal Surgery: No AICD: No Appendectomy: No Arteriovenous Shunt: No Cardiac Surgery: No Cholecystectomy: No Ear Surgery: No Endocrine Surgery: No Eye Surgery: No Genitourinary Surgery: No Gynecologic Surgery: Yes (fibroid tumor removed, HYSTERECTOMY) Hysterectomy: Yes (PARTIAL) Insulin Pump: No Joint Replacement: Yes Neurologic Surgery: No Oral Surgery: No Pacemaker: No Thoracic Surgery: No Other Surgery: Yes (FIBROID TUMOR REMOVED.,left arm/wrist) Social History Alcohol Use: No Tobacco Use: Yes (1PPD) Substance Use: No (HX IV DRUG USE) Allergies-Medications (Allergen,Severity, Reaction): Coded Allergies: Morphine (Verified Allergy, Intermediate, SWELLING, 08/15/16) *MDRO Multi-Drug Resistant Organism (Verified Adverse Reaction, Unknown, ) MRSA (arm wound) - 01/2009 & 02/2014 Reported Meds & Prescriptions Reported Meds & Active Scripts Active Clindamycin (Clindamycin HCl) 150 Mg Cap 300 Mg PO Q6H 7 Days Bactrim DS (Sulfamethoxazole-Trimethoprim) 800-160 Mg Tab 1 Tab PO BID Review of Systems Except as stated in HPI: all other systems reviewed are Neg Physical Exam Narrative GENERAL: Disheveled appearing female in no acute distress. SKIN: Warm and dry. Erythema and induration of the skin on the right forearm, left forearm. There is a fluctuant abscess to the dorsal left hand. There is a fluctuant draining abscess to the left With some surrounding cellulitic changes. HEAD: Atraumatic. Normocephalic. EYES: Pupils equal and round. No scleral icterus. No injection or drainage. ENT: No nasal bleeding or discharge. Mucous membranes pink and moist. NECK: Trachea midline. No JVD. CARDIOVASCULAR: Regular rate and rhythm. 1+ systolic murmur noted. RESPIRATORY: No accessory muscle use. Clear to auscultation. Breath sounds equal bilaterally. GASTROINTESTINAL: Abdomen soft, non-tender, nondistended. Hepatic and splenic margins not palpable. MUSCULOSKELETAL: No obvious deformities. No edema. NEUROLOGICAL: Awake and alert. No obvious cranial nerve deficits. Motor grossly within normal limits. Normal speech. PSYCHIATRIC: Appropriate mood and affect; insight and judgment normal. Data Data Last Documented VS Vital Signs Date Time Temp Pulse Resp B/P Pulse Ox O2 Delivery O2 Flow Rate FiO2 08/15/16 19:08 99.1 87 20 129/70 97 Room Air Orders Complete Blood Count With Diff (08/15/16 16:15) Comprehensive Metabolic Panel (08/15/16 16:15) Lactic Acid Sepsis Protocol (08/15/16 16:15) Urinalysis - C+S If Indicated (08/15/16 16:15) Blood Culture (08/15/16 16:15) Wound Culture And Gram Stain (08/15/16 16:15) Chest, Single Ap (08/15/16 16:15) Ecg Monitoring (08/15/16 16:15) Iv Access Insert/Monitor (08/15/16 16:15) Oximetry (08/15/16 16:15) Oxygen Administration (08/15/16 16:15) Sodium Chlor 0.9% 1000 Ml Inj (Ns 1000 M (08/15/16 16:15) Sodium Chlor 0.9% 1000 Ml Inj (Ns 1000 M (08/15/16 16:15) Sodium Chlor 0.9% 1000 Ml Inj (Ns 1000 M (08/15/16 16:15) Vancomycin Inj (Vancomycin Inj) (08/15/16 16:15) Piperacil-Tazo 3.375 Gm Premix (Zosyn 3. (08/15/16 16:15) Lidocai-Epi 1%-1:100,000 Inj (Xylocaine- (08/15/16 16:15) Ketorolac Inj (Toradol Inj) (08/15/16 17:00) Vascular Access Team Consult/P PRN (08/15/16 17:05) Vascular Poc Ultrasound (08/15/16 ) Admit Order (Ed Use Only) (08/15/16 19:23) Labs Laboratory Tests Test 08/15/16 18:12 White Blood Count 9.0 TH/MM3 Red Blood Count 4.04 MIL/MM3 Hemoglobin 11.4 GM/DL Hematocrit 35.2 % Mean Corpuscular Volume 87.3 FL Mean Corpuscular Hemoglobin 28.3 PG Mean Corpuscular Hemoglobin 32.5 % Concent Red Cell Distribution Width 14.8 % Platelet Count 102 TH/MM3 Mean Platelet Volume 10.5 FL Neutrophils (%) (Auto) 77.9 % Lymphocytes (%) (Auto) 13.7 % Monocytes (%) (Auto) 7.8 % Eosinophils (%) (Auto) 0.1 % Basophils (%) (Auto) 0.5 % Neutrophils # (Auto) 7.0 TH/MM3 Lymphocytes # (Auto) 1.2 TH/MM3 Monocytes # (Auto) 0.7 TH/MM3 Eosinophils # (Auto) 0.0 TH/MM3 Basophils # (Auto) 0.0 TH/MM3 CBC Comment DIFF FINAL Differential Comment Sodium Level 136 MEQ/L Potassium Level 3.7 MEQ/L Chloride Level 104 MEQ/L Carbon Dioxide Level 26.7 MEQ/L Anion Gap 5 MEQ/L Blood Urea Nitrogen 7 MG/DL Creatinine 0.77 MG/DL Estimat Glomerular Filtration 78 ML/MIN Rate Random Glucose 108 MG/DL Lactic Acid Level 0.7 mmol/L Calcium Level 9.1 MG/DL Total Bilirubin 0.4 MG/DL Aspartate Amino Transf 55 U/L (AST/SGOT) Alanine Aminotransferase 55 U/L (ALT/SGPT) Alkaline Phosphatase 117 U/L Total Protein 6.4 GM/DL Albumin 2.6 GM/DL MDM Medical Decision Making Medical Screen Exam Complete: Yes Emergency Medical Condition: Yes Medical Record Reviewed: Yes Interpretation(s) CBC hemoglobin 11.4, platelet count 102 otherwise unremarkable CMP AST 55 ALT 55 otherwise unremarkable, lactic acid within normal limits Differential Diagnosis Sepsis, cellulitis, abscess, necrotizing fasciitis, osteomyelitis, endocarditis , bacteremia Narrative Course Physical examination is consistent with cellulitis of the forearms, left leg, with abscess formation on the left hand and left leg. She is febrile. Plan is for basic lab work, chest x-ray, blood cultures, lactic acid. The patient was given broad-spectrum antibiotics and IV fluids. The patient does have a 1/6 systolic murmur and given her fever and history of IV drug abuse this is concerning for endocarditis. Per chart review the patient had a similar murmur upon admission in June of this year. The plan at that time was for echocardiogram but the patient left AMA prior to this being accomplished. The patient has verbally consented to incision and drainage of the left hand abscess. A wound culture was performed. The patient's lab work is been reviewed. She will be admitted for further treatment. Discussed with Dr. Childers who is agreeable. Procedures Procedure Narrative INCISION AND DRAINAGE OF ABSCESS: The area was prepped and was sterilely draped. A subcutaneous wheal of 1% Xylocaine with epinephrine with a total number 6 mL was used to anesthetize the area. The area was properly anesthetized. A number 11 scalpel was used to make a 1.5-cm incision across the area of the abscess. Cultures were obtained. The abscess was drained an irrigated with normal saline. Diagnosis Primary Impression: Abscess Additional Impressions: Cellulitis of left upper extremity Cellulitis of left lower extremity Sepsis Qualified Code: A41.9 - Sepsis, due to unspecified organism Admitting Information Admitting Physician Requests: David Jean Baptiste Aug 15, 2016 16:36 Admitting Information Admitting Physician Requests: David Jean Baptiste Aug 15, 2016 16:36
[2016-08-15 16:45] VITALS: RESP 18; O2SAT 98
[2016-08-15] MEDS ORDERED: KETOROLAC TROMETHAMINE 30 MG/ML (IVP) VIAL IV PUSH ONE (17:00)
--- NOTE | 2016-08-15 17:28 | RADRPT ---
EXAM DATE/TIME: 08/15/2016 16:55 [facility] COMPARISON: CHEST SINGLE AP, June 20, 2016, 11:53. INDICATIONS : Fever. MEDICAL HISTORY : Arthritis. smoker SURGICAL HISTORY : Hysterectomy. ENCOUNTER: Initial ACUITY: 1 week PAIN SCORE: Non-responsive. LOCATION: Bilateral upper chest FINDINGS: A single view of the chest demonstrates the lungs to be symmetrically aerated without evidence of mas s, infiltrate or effusion. The cardiomediastinal contours are unremarkable. Osseous structures are intact. CONCLUSION: No acute infiltrates. Joshua Ambriz MD on August 15, 2016 at 17:25 Board Certified Radiologist. This report was verified electronically.
[2016-08-15 18:32] LABS: BASOPHIL % 0.5 % (0.0-2.0); EOSINOPHIL % 0.1 % (0.0-4.0); HEMATOCRIT 35.2 % (35.0-46.0); HEMO FLAGS DIFF FINAL; LYMPH % 13.7 % (9.0-44.0); LYMPHOCYTE # 1.2 TH/MM3 (1.0-4.8); MEAN CELL VOLUME 87.3 FL (80.0-100.0); MEAN CORPUSCULAR HEMOGLOBIN 28.3 PG (27.0-34.0); MEAN CORPUSCULAR HGB CONC 32.5 % (32.0-36.0); MONO % 7.8 % (0.0-8.0); NEUT % 77.9 % (16.0-70.0); PLATELET COUNT 102 TH/MM3 (150-450); RED BLOOD COUNT 4.04 MIL/MM3 (4.00-5.30); RED CELL DISTRIBUTION WIDTH 14.8 % (11.6-17.2)
[2016-08-15 18:47] LABS: ANION GAP 5 MEQ/L (5-15); AST (GOT) 55 U/L (15-37); BICARBONATE 26.7 MEQ/L (21.0-32.0); BLOOD UREA NITROGEN 7 MG/DL (7-18); CHLORIDE 104 MEQ/L (98-107); GLOMERULAR FILTRATION RATE 78 ML/MIN (>89); POTASSIUM 3.7 MEQ/L (3.5-5.1); SODIUM (NA) 136 MEQ/L (136-145)
[2016-08-15 18:48] LABS: ALT (GPT) 55 U/L (10-53)
[2016-08-15 18:50] LABS: ALKALINE PHOSPHATASE 117 U/L (45-117); TOTAL BILIRUBIN ADULT 0.4 MG/DL (0.2-1.0)
[2016-08-15 19:08] VITALS: BP 129/70; PULSE 87; RESP 20; TEMP 99.1; O2SAT 97
[2016-08-15 19:41] LABS: BACTERIA, URINE RARE /hpf; BLOOD, URINE SMALL (NEG); GLUCOSE,URINE NEG (NEG); KETONE, URINE NEG (NEG); MUCUS URINE FEW /lpf (OCC); NITRITE,URINE NEG (NEG); SQUAMOUS EPITHELIAL CELL URINE 7 /hpf (0-5); URINE COLOR YELLOW (YELLW/STRAW)
[2016-08-15 19:58] LABS: COMMENT (UR) CATH-CULTURE IND; CULTURE IF INDICATED CATH CULTURE IND
[2016-08-15] MEDS ORDERED: NALOXONE HCL 0.4 MG/ML AMP IV PRN (20:15)
[2016-08-15] MEDS ORDERED: Vancomycin Consult Pharmacy 1 EA OTHER SCH (20:15)
[2016-08-15] MEDS ORDERED: SODIUM CHLORIDE 0.9% FLUSH 10 ML FLUSH IV FLUSH PRN (20:15)
[2016-08-15] MEDS: SODIUM CHLORIDE 0.9% FLUSH 10 ML FLUSH IV FLUSH SCH (21:25)
[2016-08-15 21:35] VITALS: BP 111/54; PULSE 73; RESP 18; TEMP 100.3; O2SAT 95
[2016-08-15 22:00] VITALS: PULSE 66
--- NOTE | 2016-08-15 22:26 | HHI.HP ---
[facility] Service [facility] Primary Care Physician Unknown Admission Diagnosis sepsis, cellulitis, abscess Diagnoses: Chief Complaint: pain and swelling of left hand and RFA Travel History International Travel<30 Days: No Contact w/Intl Traveler <30 Da: No Traveled to Known Affected Are: No History of Present Illness 51 y/o female with a history of chronic pain, IVDA, Hep C, and anxiety presents to the ED with left hand and RFA pain, redness and swelling that began 1 week ago. She describes the pain as constant throbbing, 10/10 to left hand and RFA. She states it is worse with palpation. She denies injecting into these sites recently. Last IV drug use was 1 months ago she states, and she injected Dilaudid at this time. She is also complains of swelling to left lower extremity. She was noted to have a fever in ED on arrival, she does not think she had a fever at home but she was having chills. Denies any chest pain, sob, nausea or vomiting. Review of Systems Constitutional: COMPLAINS OF: Fatigue, Fever, Chills Respiratory: DENIES: Cough, Shortness of breath Cardiovascular: DENIES: Chest pain Gastrointestinal: DENIES: Constipation, Diarrhea, Nausea, Vomiting Genitourinary: DENIES: Hematuria, Dysuria Musculoskeletal: DENIES: Back pain, Neck pain Integumentary: DENIES: Rash Hematologic/lymphatic: DENIES: Lymphadenopathy Immunologic/allergic: DENIES: Urticaria Neurologic: DENIES: Headache Past Family Social History Past Medical History IVDA Anxiety Chronic pain Past Surgical History Cervical neck surgery Partial hysterectomy Reported Medications Reported Meds & Active Scripts Active Clindamycin (Clindamycin HCl) 150 Mg Cap 300 Mg PO Q6H 7 Days Bactrim DS (Sulfamethoxazole-Trimethoprim) 800-160 Mg Tab 1 Tab PO BID Allergies: Coded Allergies: Morphine (Verified Allergy, Intermediate, SWELLING, 08/15/16) *MDRO Multi-Drug Resistant Organism (Verified Adverse Reaction, Unknown, ) MRSA (arm wound) - 01/2009 & 02/2014 Active Ordered Medications Current Medications Medications (Trade) Dose Ordered Sig/Sasha Route Start Time Stop Time Status Last Admin (NS Flush) 2 ml UNSCH PRN IV FLUSH 08/15/16 20:15 (NS Flush) 2 ml BID IV FLUSH 08/15/16 21:00 08/15/16 21:25 Naloxone HCl 0.4 mg 0.4 mg UNSCH PRN IV 08/15/16 20:15 Pharmacy Profile Note 0 ml @ 0 mls/hr UNSCH OTHER 08/15/16 20:15 (Zosyn 4.5 Gm Premix) 100 ml @ 200 mls/hr Q6H IV 08/15/16 23:00 Ketorolac Tromethamine 30 mg 30 mg Q6H PRN IV PUSH 08/15/16 20:30 (Vancomycin Inj/ NS 250 ml Inj) 250 ml @ 250 mls/hr Q12H IV 08/16/16 05:00 Miscellaneous Information SPECIFIC LAB TO BE DRAWN:VANCO TROUGH DATE... ONCE ONCE .XX 08/17/16 04:45 08/17/16 04:46 Family History Mom: Hypertension Social History Tobacco use: 1 PPD Alcohol use: Denies Illicit drug use: Dilaudid IV Physical Exam Vital Signs Vital Signs Date Time Temp Pulse Resp B/P Pulse Ox O2 Delivery O2 Flow Rate FiO2 08/15/16 19:16 20 08/15/16 19:08 99.1 87 20 129/70 97 Room Air 08/15/16 16:45 18 98 Room Air 08/15/16 16:45 78 18 08/15/16 16:45 98 Room Air 08/15/16 14:42 102.2 84 18 122/66 96 Room Air Physical Exam GENERAL: This is a well-nourished, well-developed patient, in no apparent distress. SKIN: Erythema and warmth to left hand, draining serosanguineous fluid, dressing in tact. Erythema and warmth to left lower extremity, with scab to lower inner knee. Erythema and warmth to RFA, hard to palpation. HEAD: Atraumatic. Normocephalic. EYES: Pupils equal round and reactive. ENT: Nose without bleeding, purulent drainage or septal hematoma. NECK: Trachea midline. No JVD or lymphadenopathy. CARDIOVASCULAR: Regular rate and rhythm without murmurs, gallops, or rubs. RESPIRATORY: Clear to auscultation. Breath sounds equal bilaterally. No wheezes , rales, or rhonchi. GASTROINTESTINAL: Abdomen soft, non-tender, nondistended. BSx4 MUSCULOSKELETAL: LLE +2 edema. No joint tenderness, effusion, or edema noted. No calf tenderness. NEUROLOGICAL: Awake and alert. Motor and sensory grossly within normal limits. Five out of 5 muscle strength in all muscle groups. Normal speech. Laboratory Laboratory Tests Test 08/15/16 08/15/16 18:12 19:08 White Blood Count 9.0 Red Blood Count 4.04 Hemoglobin 11.4 Hematocrit 35.2 Mean Corpuscular Volume 87.3 Mean Corpuscular Hemoglobin 28.3 Mean Corpuscular Hemoglobin 32.5 Concent Red Cell Distribution Width 14.8 Platelet Count 102 Mean Platelet Volume 10.5 Neutrophils (%) (Auto) 77.9 Lymphocytes (%) (Auto) 13.7 Monocytes (%) (Auto) 7.8 Eosinophils (%) (Auto) 0.1 Basophils (%) (Auto) 0.5 Neutrophils # (Auto) 7.0 Lymphocytes # (Auto) 1.2 Monocytes # (Auto) 0.7 Eosinophils # (Auto) 0.0 Basophils # (Auto) 0.0 CBC Comment DIFF FINAL Differential Comment Sodium Level 136 Potassium Level 3.7 Chloride Level 104 Carbon Dioxide Level 26.7 Anion Gap 5 Blood Urea Nitrogen 7 Creatinine 0.77 Estimat Glomerular Filtration 78 Rate Random Glucose 108 Lactic Acid Level 0.7 Calcium Level 9.1 Total Bilirubin 0.4 Aspartate Amino Transf 55 (AST/SGOT) Alanine Aminotransferase 55 (ALT/SGPT) Alkaline Phosphatase 117 Total Protein 6.4 Albumin 2.6 Urine Color YELLOW Urine Turbidity HAZY Urine pH 6.0 Urine Specific [place] 1.022 Urine Protein TRACE Urine Glucose (UA) NEG Urine Ketones NEG Urine Occult Blood SMALL Urine Nitrite NEG Urine Bilirubin NEG Urine Urobilinogen LESS THAN 2.0 Urine Leukocyte Esterase LARGE Urine RBC 5 Urine WBC 27 Urine Squamous Epithelial 7 Cells Urine Amorphous Sediment RARE Urine Bacteria RARE Urine Mucus FEW Microscopic Urinalysis Comment CATH-CULTURE IND Date/Time Procedure Status Source Growth 08/15/16 19:08 Urine Culture Received Urine Catheterized Urine Pending 08/15/16 18:00 Aerobic Blood Culture Received Blood Peripheral Pending 08/15/16 18:00 Anaerobic Blood Culture Received Blood Peripheral Pending 08/15/16 17:45 Gram Stain Received Wound Hand Pending 08/15/16 17:45 Wound Culture Received Wound Hand Pending Result Diagram: 08/15/16 1812 08/15/16 1812 Imaging Last Impressions Chest X-Ray 08/15/16 1615 Signed Impressions: Service Date/Time: Saturday, August 15, 2016 16:55 - CONCLUSION: No acute infiltrates. Joshua Ambriz MD Assessment and Plan Problem List: (1) IVDU (intravenous drug user) ICD Code: F19.90 Status: Acute (2) Abscess ICD Code: L02.91 Status: Acute (3) Transaminitis ICD Code: R74.0 Status: Acute Assessment and Plan 51 y/o female with a history of chronic pain, IVDA, and anxiety presents to the ED with left hand and RFA pain, redness and swelling that began 1 week ago. Abscess, left hand and possible right forearm and LLE, I&D in ED of left hand. -IV antibiotics Vanco and Zosyn, pharmacy to dose -US of Rt arm and left leg to r/o abscess -Pain management with IV Toradol -Consult hand surgery for recommendations, may need general surgery if US shows abscess on RFA and LLE -Wound culture pending Transaminitis, AST 55 ALT 55, chronic, patient does have HEP C -Patient will need to follow up out patient for treatment of hep c UTI, abnormal UA, patient with fever 102 -Urine culture pending -IV antibiotics as above IVDA, chronic - encouraged to quit DVT prophylaxis: SCDs Physician Certification 2 Midnight Certification Type: Admission for Inpatient Services Order for Inpatient Services The services are ordered in accordance with Medicare regulations or non- Medicare payer requirements, as applicable. In the case of services not specified as inpatient-only, they are appropriately provided as inpatient services in accordance with the 2-midnight benchmark. Estimated LOS (days): 3 days is the estimated time the patient will need to remain in the hospital, assuming treatment plan goals are met and no additional complications. Post-Hospital Plan: Elina Norris Aug 15, 2016 22:26
[2016-08-15] MEDS: PIPERACIL-TAZO 4.5 GM PREMIX 100 ML IV SCH (23:00)
[2016-08-16] VITALS: BP 93/52; PULSE 60; RESP 16; TEMP 99.1; O2SAT 95
[2016-08-16] MEDS ORDERED: SODIUM CHLORID 0.9% 500 ML INJ 500 ML IV ONE (00:15)
--- NOTE | 2016-08-16 00:37 | RADRPT ---
EXAM DATE/TIME: 08/15/2016 22:41 [facility] COMPARISON: No previous studies available for comparison. INDICATIONS : Abscess. MEDICAL HISTORY : Methicillin-resistant Staphylococcus aureus. Arthritis. Anxiety. SURGICAL HISTORY : Hysterectomy. ENCOUNTER: Initial ACUITY: 3 days PAIN SCORE: 4/10 LOCATION: Right arm. AREA EVALUATED: Right forearm. FINDINGS: MASSES: None. FLUID COLLECTIONS: None. OTHER: Small hypoechoic area with echogenic centrally in the superficial soft tissues measures 18 x 12 x 12 mm. Increased flow through this region. CONCLUSION: 1. Possible small abscess in the superior soft tissues of the right forearm. Joshua Terrell MD on August 16, 2016 at 0:29 Board Certified Radiologist. This report was verified electronically.
--- NOTE | 2016-08-16 00:45 | RADRPT ---
EXAM DATE/TIME: 08/15/2016 22:48 [facility] COMPARISON: No previous studies available for comparison. INDICATIONS : Abscess. MEDICAL HISTORY : Arthritis. Methicillin-resistant Staphylococcus aureus. Anxiety. SURGICAL HISTORY : Hysterectomy. Left wrist surgery. ENCOUNTER: Initial ACUITY: 3 days PAIN SCORE: 5/10 LOCATION: Left leg. AREA EVALUATED: FINDINGS: Target sonogram over the left calf this demonstrates soft tissue swelling and area of decreased echog enicity measuring 3.0 x 2.1 x 1.6 cm. There is increased blood flow. CONCLUSION: Superficial hypoechoic area could be small abscess. Joshua Terrell MD on August 16, 2016 at 0:41 Board Certified Radiologist. This report was verified electronically.
[2016-08-16] MEDS: KETOROLAC TROMETHAMINE 30 MG/ML (IVP) VIAL IV PUSH PRN ×3 (01:02→16:48)
[2016-08-16 04:00] VITALS: BP 98/56; PULSE 60; RESP 16; TEMP 99.4; O2SAT 96
[2016-08-16] MEDS: VANCOMYCIN 1,000 MG/NS 250 ML IV SCH ×4 (05:00→16:48)
[2016-08-16] MEDS: PIPERACIL-TAZO 4.5 GM PREMIX 100 ML IV SCH ×4 (05:00→23:27)
[2016-08-16 07:53] LABS: AUTOMATED NEUTROPHIL # 5.5 TH/MM3 (1.8-7.7); BASOPHIL % 0.4 % (0.0-2.0); EOSINOPHIL # 0.2 TH/MM3 (0-0.4); EOSINOPHIL % 2.7 % (0.0-4.0); HEMATOCRIT 34.6 % (35.0-46.0); LYMPH % 10.3 % (9.0-44.0); LYMPHOCYTE # 0.7 TH/MM3 (1.0-4.8); MEAN CELL VOLUME 87.3 FL (80.0-100.0); MEAN CORPUSCULAR HEMOGLOBIN 29.1 PG (27.0-34.0); MEAN CORPUSCULAR HGB CONC 33.4 % (32.0-36.0); MONO % 6.9 % (0.0-8.0); NEUT % 79.7 % (16.0-70.0); PLATELET COUNT 95 TH/MM3 (150-450); RED BLOOD COUNT 3.97 MIL/MM3 (4.00-5.30); RED CELL DISTRIBUTION WIDTH 15.2 % (11.6-17.2); WHITE BLOOD COUNT 6.9 TH/MM3 (4.0-11.0)
[2016-08-16 08:00] VITALS: BP 125/73; PULSE 73; RESP 20; TEMP 99.7; O2SAT 90
[2016-08-16 08:14] LABS: HEMO FLAGS AUTO DIFF
[2016-08-16] MEDS: SODIUM CHLORIDE 0.9% FLUSH 10 ML FLUSH IV FLUSH SCH ×2 (08:17→21:16)
[2016-08-16 08:31] LABS: BICARBONATE 23.6 MEQ/L (21.0-32.0)
[2016-08-16 09:07] LABS: SCAN/DIFF AUTO DIFF CONFIRMED
--- NOTE | 2016-08-16 11:34 | HHI.PR ---
Subjective Remarks Follow-up for right arm infection and left hand infection Patient was found sleeping. I was able to wake patient. She is asking for pain medication. Otherwise no other complaints. She remains afebrile. Objective Vitals Vital Signs Date Time Temp Pulse Resp B/P Pulse Ox O2 Delivery O2 Flow Rate FiO2 08/16/16 04:00 99.4 60 16 98/56 96 08/16/16 00:00 99.1 60 16 93/52 95 08/15/16 22:32 Room Air 08/15/16 21:35 100.3 73 18 111/54 95 08/15/16 19:16 20 08/15/16 19:08 99.1 87 20 129/70 97 Room Air 08/15/16 16:45 18 98 Room Air 08/15/16 16:45 78 18 08/15/16 16:45 98 Room Air 08/15/16 14:42 102.2 84 18 122/66 96 Room Air I/O 08/15/16 08/15/16 08/15/16 08/16/16 08/16/16 08/16/16 07:00 15:00 23:00 07:00 15:00 23:00 Intake Total 240 ml 120 ml Output Total 200 ml 100 ml Balance 40 ml 20 ml Intake Oral 240 ml 120 ml Output Urine Total 200 ml 100 ml # Voids 2 # Bowel Movements 0 0 Result Diagram: 08/16/16 0652 08/16/16 0652 Imaging Last Impressions Chest X-Ray 08/15/16 1615 Signed Impressions: Service Date/Time: Monday, August 15, 2016 16:55 - CONCLUSION: No acute infiltrates. Joshua Ambriz MD Upper Extremity Ultrasound 08/15/16 0000 Signed Impressions: Service Date/Time: Monday, August 15, 2016 22:41 - CONCLUSION: 1. Possible small abscess in the superior soft tissues of the right forearm. Joshua Terrell MD Lower Extremity Ultrasound 08/15/16 0000 Signed Impressions: Service Date/Time: Monday, August 15, 2016 22:48 - CONCLUSION: Superficial hypoechoic area could be small abscess. Joshua Terrell MD Objective Remarks GENERAL: in NAD SKIN: Right forearm with erythema and mildly hardening of the forearm and abscess. Left hand erythema on the dorsal portion status post I&D and blood from I &D CARDIOVASCULAR: Regular rate and rhythm without murmurs, gallops, or rubs. RESPIRATORY: Breath sounds equal bilaterally. No accessory muscle use. GASTROINTESTINAL: Abdomen soft, non-tender, nondistended. Medications and IVs Current Medications Sodium Chloride 1,000 ml @ 1,000 mls/hr Q1H ONCE IV Last administered on 16:46; Start 08/15/16 at 16:15; Stop 08/15/16 at 17:14; Status DC Sodium Chloride 1,000 ml @ 1,000 mls/hr Q1H ONCE IV Last administered on 16:47; Start 08/15/16 at 16:15; Stop 08/15/16 at 17:14; Status DC Sodium Chloride 100 ml @ 1,000 mls/hr Q6M ONCE IV Last administered on 18:39; Start 08/15/16 at 16:15; Stop 08/15/16 at 16:20; Status DC Vancomycin HCl 1000 mg/Sodium Chloride 250 ml @ 250 mls/hr ONCE ONCE IV Last administered on 08/15/16 16:45; Start 08/15/16 at 16:15; Stop 08/15/16 at 17:14; Status DC Piperacillin Sod/ Tazobactam Sod (Zosyn 3.375 Gm Premix) 50 ml @ 100 mls/hr ONCE ONCE IV Last administered on 08/15/16 16:45; Start 08/15/16 at 16:15; Stop 08/15/16 at 16:44; Status DC Lidocaine/ Epinephrine (Xylocaine-Epi 1%-1:100,000 Inj) 20 ml ONCE ONCE INFIL Last administered on 08/15/16 16:45; Start 08/15/16 at 16:15; Stop 08/15/16 at 16: 18; Status DC Ketorolac Tromethamine (Toradol Inj) 30 mg ONCE ONCE IV PUSH Last administered on 08/15/16 18:16; Start 08/15/16 at 17:00; Stop 08/15/16 at 17:01; Status DC Sodium Chloride (NS Flush) 2 ml UNSCH PRN IV FLUSH FLUSH AFTER USING IV ACCESS Last administered on 08/16/16 01:03; Start 08/15/16 at 20:15 Sodium Chloride (NS Flush) 2 ml BID IV FLUSH Last administered on 08/16/16 08: 17; Start 08/15/16 at 21:00 Naloxone HCl 0.4 mg 0.4 mg UNSCH PRN IV SEE LABEL COMMENTS; Start 08/15/16 at 20 :15 Pharmacy Profile Note 0 ml @ 0 mls/hr UNSCH OTHER ; Start 08/15/16 at 20:15 Piperacillin Sod/ Tazobactam Sod (Zosyn 4.5 Gm Premix) 100 ml @ 200 mls/hr Q6H IV Last administered on 08/15/16 23:00; Start 08/15/16 at 23:00 Ketorolac Tromethamine 30 mg 30 mg Q6H PRN IV PUSH pain >5 or fever Last administered on 08/16/16 08:18; Start 08/15/16 at 20:30 Vancomycin HCl/ Sodium Chloride (Vancomycin Inj/ NS 250 ml Inj) 250 ml @ 250 mls/hr Q12H IV ; Start 08/16/16 at 05:00 Miscellaneous Information SPECIFIC LAB TO BE DRAWN:VANCO TROUGH DATE... ONCE ONCE .XX ; Start 08/17/16 at 04:45; Stop 08/17/16 at 04:46 Sodium Chloride (NS 500 ml Inj) 500 ml @ 500 mls/hr BOLUS ONCE IV Last administered on 08/16/16 01:02; Start 08/16/16 at 00:15; Stop 08/16/16 at 01:14; Status DC A/P Problem List: (1) IVDU (intravenous drug user) ICD Code: F19.90 Status: Acute (2) Abscess ICD Code: L02.91 Status: Acute (3) Transaminitis ICD Code: R74.0 Status: Acute Assessment and Plan 51 y/o female with a history of chronic pain, IVDA, and anxiety presents to the ED with left hand and RFA pain, redness and swelling that began 1 week ago. Abscess, left hand and possible right forearm and LLE, I&D in ED of left hand. -IV antibiotics Vanco and Zosyn, pharmacy to dose - Possible small abscess in the superior soft tissues of the right forearm and hypoechoic area could be small abscess. -Continue with current antibiotics pending wound culture. Pending consult from general surgeon and hand surgeon. Transaminitis, AST 55 ALT 55, chronic -History of hepatitis C. Noncompliant. -Asymptomatic. -Patient will need to follow up out patient for treatment of hep c UTI, abnormal UA, patient with fever 102 -Urine culture pending -IV antibiotics as above IVDA, chronic - encouraged to quit DVT prophylaxis: SCDs Tammie Donald MD Aug 16, 2016 11:34
[2016-08-16 12:00] VITALS: BP 104/57; PULSE 63; RESP 16; TEMP 98.9; O2SAT 92
--- NOTE | 2016-08-16 14:40 | PD.CONS ---
cc: Marlo Matias MD [facility] General Surgery Consult Requested By Hollie JOHNSON Reason for Consult Evaluation of LEFT lower extremities abscess Primary Care Physician Unknown History of Present Illness This is a 51-year-old female with a past medical history of IVDA, anxiety, and chronic pain. She presents to the emergency department for evaluation of a left hand abscess, right forearm abscess, and left leg abscess. She reports no trauma to any of these areas. She said they spontaneously occurred about a week ago. She has increased pain and increased swelling present inferiorly and the left hand and right forearm. She denies fevers or chills at home. She reports that she has used IV Dilaudid approximately 3 months ago and has had a long-standing problem with IV drug abuse in the past. She denies having abscesses in the past. A General Surgery consultation has been requested for evaluation of a left lower extremity abscess. Review of Systems Constitutional: DENIES: Fatigue, Fever, Chills Endocrine: DENIES: Polydipsia, Polyuria, Polyphagia Eyes: DENIES: Diplopia, Eye inflammation Ears, nose, mouth, throat: DENIES: Hearing loss Respiratory: DENIES: Cough Cardiovascular: DENIES: Chest pain, Palpitations Gastrointestinal: DENIES: Abdominal pain, Nausea, Vomiting Genitourinary: DENIES: Urinary frequency, Urinary incontinence Musculoskeletal: DENIES: Joint pain Integumentary: COMPLAINS OF: Abnormal pigmentation (large left hand abscess; moderate size right forearm abscess; left leg abscess-pain) Hematologic/lymphatic: DENIES: Bruising Immunologic/allergic: DENIES: Eczema Neurologic: DENIES: Headache, Localized weakness Psychiatric: DENIES: Mood changes, Depression, Hallucinations Past Family Social History Past Medical History Anxiety Chronic pain IV drug abuse Past Surgical History Cervical spine surgery Partial hysterectomy Reported Medications Does not take any chronic medications at home Allergies: Coded Allergies: Morphine (Verified Allergy, Intermediate, SWELLING, 08/15/16) *MDRO Multi-Drug Resistant Organism (Verified Adverse Reaction, Unknown, ) MRSA (arm wound) - 01/2009 & 02/2014 Active Ordered Medications Current Medications Medications (Trade) Dose Ordered Sig/Sasha Route Start Time Stop Time Status Last Admin (NS Flush) 2 ml UNSCH PRN IV FLUSH 08/15/16 20:15 08/16/16 01:03 (NS Flush) 2 ml BID IV FLUSH 08/15/16 21:00 08/16/16 08:17 Naloxone HCl 0.4 mg 0.4 mg UNSCH PRN IV 08/15/16 20:15 Pharmacy Profile Note 0 ml @ 0 mls/hr UNSCH OTHER 08/15/16 20:15 (Zosyn 4.5 Gm Premix) 100 ml @ 200 mls/hr Q6H IV 08/15/16 23:00 08/16/16 12:14 Ketorolac Tromethamine 30 mg 30 mg Q6H PRN IV PUSH 08/15/16 20:30 08/16/16 08:18 (Vancomycin Inj/ NS 250 ml Inj) 250 ml @ 250 mls/hr Q12H IV 08/16/16 05:00 Miscellaneous Information SPECIFIC LAB TO BE DRAWN:VANCO TROUGH DATE... ONCE ONCE .XX 08/17/16 04:45 08/17/16 04:46 (Betadine 10% Oint) 1 applic DAILY TOPICAL 08/16/16 13:30 UNV Family History Noncontributory Social History Positive tobacco useone pack per day Denies EtOH use Positive illicit drug use reports injecting Dilaudid approximately 3 months ago Physical Exam Vital Signs Vital Signs Date Time Temp Pulse Resp B/P Pulse Ox O2 Delivery O2 Flow Rate FiO2 08/16/16 12:00 98.9 63 16 104/57 92 08/16/16 08:27 Room Air 08/16/16 08:00 99.7 73 20 125/73 90 08/16/16 04:00 99.4 60 16 98/56 96 08/16/16 00:00 99.1 60 16 93/52 95 08/15/16 22:32 Room Air 08/15/16 21:35 100.3 73 18 111/54 95 08/15/16 19:16 20 08/15/16 19:08 99.1 87 20 129/70 97 Room Air 08/15/16 16:45 18 98 Room Air 08/15/16 16:45 78 18 08/15/16 16:45 98 Room Air 08/15/16 14:42 102.2 84 18 122/66 96 Room Air Physical Exam GENERAL: 51 year old female; lethargic during exam resting in bed in no acute distress SKIN: LEFT hand---large abscess which has been opened in ED--draining purulent fluid; RIGHT forearm: large palpable abscess-erythema; LEFT mullins-- spontaneously draining abscess with large opening HEAD: Atraumatic. Normocephalic. EYES: Pupils equal and round. No scleral icterus. No injection or drainage. ENT: No nasal bleeding or discharge. Mucous membranes pink and moist. NECK: Trachea midline. CARDIOVASCULAR: Regular rate and rhythm. RESPIRATORY: No accessory muscle use. Clear to auscultation. Breath sounds equal bilaterally. GASTROINTESTINAL: Abdomen soft, non-tender, nondistended. MUSCULOSKELETAL: LEFT hand swelling; LEFT pedal edema NEUROLOGICAL: Awake but at times lethargic. No obvious cranial nerve deficits. Motor grossly within normal limits. Five out of 5 muscle strength in the arms and legs. Normal speech. PSYCHIATRIC: Appropriate mood and affect; insight and judgment normal. Laboratory Laboratory Tests Test 08/15/16 08/15/16 08/16/16 18:12 19:08 06:52 White Blood Count 9.0 6.9 Red Blood Count 4.04 3.97 Hemoglobin 11.4 11.5 Hematocrit 35.2 34.6 Mean Corpuscular Volume 87.3 87.3 Mean Corpuscular Hemoglobin 28.3 29.1 Mean Corpuscular Hemoglobin 32.5 33.4 Concent Red Cell Distribution Width 14.8 15.2 Platelet Count 102 95 Mean Platelet Volume 10.5 10.6 Neutrophils (%) (Auto) 77.9 79.7 Lymphocytes (%) (Auto) 13.7 10.3 Monocytes (%) (Auto) 7.8 6.9 Eosinophils (%) (Auto) 0.1 2.7 Basophils (%) (Auto) 0.5 0.4 Neutrophils # (Auto) 7.0 5.5 Lymphocytes # (Auto) 1.2 0.7 Monocytes # (Auto) 0.7 0.5 Eosinophils # (Auto) 0.0 0.2 Basophils # (Auto) 0.0 0.0 CBC Comment DIFF FINAL AUTO DIFF Differential Comment AUTO DIFF CONFIRMED Sodium Level 136 135 Potassium Level 3.7 4.0 Chloride Level 104 105 Carbon Dioxide Level 26.7 23.6 Anion Gap 5 6 Blood Urea Nitrogen 7 9 Creatinine 0.77 0.76 Estimat Glomerular Filtration 78 80 Rate Random Glucose 108 80 Lactic Acid Level 0.7 Calcium Level 9.1 9.2 Total Bilirubin 0.4 Aspartate Amino Transf 55 (AST/SGOT) Alanine Aminotransferase 55 (ALT/SGPT) Alkaline Phosphatase 117 Total Protein 6.4 Albumin 2.6 Urine Color YELLOW Urine Turbidity HAZY Urine pH 6.0 Urine Specific [place] 1.022 Urine Protein TRACE Urine Glucose (UA) NEG Urine Ketones NEG Urine Occult Blood SMALL Urine Nitrite NEG Urine Bilirubin NEG Urine Urobilinogen LESS THAN 2.0 Urine Leukocyte Esterase LARGE Urine RBC 5 Urine WBC 27 Urine Squamous Epithelial 7 Cells Urine Amorphous Sediment RARE Urine Bacteria RARE Urine Mucus FEW Microscopic Urinalysis Comment CATH-CULTURE IND Date/Time Procedure Status Source Growth 08/15/16 19:08 Urine Culture - Preliminary Resulted Urine Catheterized Urine NO GROWTH IN 24 HOURS. 08/15/16 18:00 Aerobic Blood Culture - Preliminary Resulted Blood Peripheral NO GROWTH IN 1 DAY 08/15/16 18:00 Anaerobic Blood Culture - Preliminary Resulted Blood Peripheral NO GROWTH IN 1 DAY 08/15/16 17:45 Gram Stain - Final Resulted Wound Hand 08/15/16 17:45 Wound Culture - Preliminary Resulted Streptococcus Species Result Diagram: 08/16/16 0652 08/16/16 0652 Imaging Last 48 hours Impressions Chest X-Ray 08/15/16 1615 Signed Impressions: Service Date/Time: Monday, August 15, 2016 16:55 - CONCLUSION: No acute infiltrates. Joshua Ambriz MD Upper Extremity Ultrasound 08/15/16 0000 Signed Impressions: Service Date/Time: Monday, August 15, 2016 22:41 - CONCLUSION: 1. Possible small abscess in the superior soft tissues of the right forearm. Joshua Terrell MD Lower Extremity Ultrasound 08/15/16 0000 Signed Impressions: Service Date/Time: Monday, August 15, 2016 22:48 - CONCLUSION: Superficial hypoechoic area could be small abscess. Joshua Terrell MD Assessment and Plan Assessment and Plan 51 year old female with a past history of IVDA with Dilaudid; with multiple abscesses -LEFT leg abscess is spontaneously draining -Recommend Iodoform packing BID with dry 4x4 gauze over; change BID -Defer LEFT hand and RIGHT Forearm abscess to Hand Surgery -No operative plans per GS -Okay to shower -Diet as tolerated -Thank you for this consult Discussed Condition With Dr. Polly Tinsley. Janki Alford Aug 16, 2016 14:40
[2016-08-16 16:00] VITALS: BP 102/52; PULSE 71; RESP 18; TEMP 99.5; O2SAT 90
[2016-08-16] MEDS: POVIDONE IODINE 10% OINT 30 GM TUBE TOPICAL SCH (16:49)
--- NOTE | 2016-08-16 17:41 | PD.CONS ---
History of Present Illness Service Hand Surgery Consult Requested By Reason for Consult Abscess, left hand. Primary Care Physician Unknown Diagnoses: History of Present Illness This is a 51 year old female who was admitted on 08/15/16 for pain, redness, and swelling of the right arm, left hand, and left leg. She has a history of IVDU and has been suspected of endocarditis in the past, but left the hospital AMA before further evaluation. The abscess of the left hand was drained in the ER yesterday and hand surgery has been asked to follow up with the patient. Currently, the patient complains of pain. 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 Past Medical History IVDA anxiety chronic pain Past Surgical History Cervical neck surgery partial hysterectomy Active Ordered Medications Current Medications Medications (Trade) Dose Ordered Sig/Sasha Route Start Time Stop Time Status Last Admin (NS Flush) 2 ml UNSCH PRN IV FLUSH 08/15/16 20:15 08/16/16 01:03 (NS Flush) 2 ml BID IV FLUSH 08/15/16 21:00 08/16/16 08:17 Naloxone HCl 0.4 mg 0.4 mg UNSCH PRN IV 08/15/16 20:15 Pharmacy Profile Note 0 ml @ 0 mls/hr UNSCH OTHER 08/15/16 20:15 (Zosyn 4.5 Gm Premix) 100 ml @ 200 mls/hr Q6H IV 08/15/16 23:00 08/16/16 16:46 Ketorolac Tromethamine 30 mg 30 mg Q6H PRN IV PUSH 08/15/16 20:30 08/16/16 16:48 (Vancomycin Inj/ NS 250 ml Inj) 250 ml @ 250 mls/hr Q12H IV 08/16/16 05:00 08/16/16 16:48 Miscellaneous Information SPECIFIC LAB TO BE DRAWN:VANCO TROUGH DATE... ONCE ONCE .XX 08/17/16 16:45 08/17/16 16:46 (Betadine 10% Oint) 1 applic DAILY TOPICAL 08/16/16 16:00 08/16/16 16:49 Family History Mother with HTN Social History 1PPD cigarettes IVDA, last admitted use was 1month ago and drug was Dilaudid Denies alcohol Physical Exam Vital Signs Vital Signs Date Time Temp Pulse Resp B/P Pulse Ox O2 Delivery O2 Flow Rate FiO2 08/16/16 12:00 98.9 63 16 104/57 92 08/16/16 08:27 Room Air 08/16/16 08:00 99.7 73 20 125/73 90 08/16/16 04:00 99.4 60 16 98/56 96 08/16/16 00:00 99.1 60 16 93/52 95 08/15/16 22:32 Room Air 08/15/16 21:35 100.3 73 18 111/54 95 08/15/16 19:16 20 08/15/16 19:08 99.1 87 20 129/70 97 Room Air Physical Exam GENERAL: This is a well-nourished, well-developed patient, in no apparent distress. SKIN: Areas of redness and induration to the right forearm. HEAD: Atraumatic. Normocephalic. EYES: Pupils equal round and reactive. No scleral icterus. No injection or drainage. ENT: Nose without bleeding, purulent drainage. T Airway patent. NECK: Trachea midline. CARDIOVASCULAR: Regular rate and rhythm without murmurs, gallops, or rubs. RESPIRATORY: Clear to auscultation. Breath sounds equal bilaterally. No wheezes , rales, or rhonchi. . MUSCULOSKELETAL: There is a wound to the dorsal left hand over the index metacarpal. There is no purulent drainage expressed. There is swelling and erythema to the hand and fingers, which is subjectively reduced per the patient. The patient is able to flex and extend all fingers without significant pain. NEUROLOGICAL: Awake and alert. Normal speech. Laboratory Laboratory Tests Test 08/15/16 08/15/16 08/16/16 18:12 19:08 06:52 White Blood Count 9.0 6.9 Red Blood Count 4.04 3.97 Hemoglobin 11.4 11.5 Hematocrit 35.2 34.6 Mean Corpuscular Volume 87.3 87.3 Mean Corpuscular Hemoglobin 28.3 29.1 Mean Corpuscular Hemoglobin 32.5 33.4 Concent Red Cell Distribution Width 14.8 15.2 Platelet Count 102 95 Mean Platelet Volume 10.5 10.6 Neutrophils (%) (Auto) 77.9 79.7 Lymphocytes (%) (Auto) 13.7 10.3 Monocytes (%) (Auto) 7.8 6.9 Eosinophils (%) (Auto) 0.1 2.7 Basophils (%) (Auto) 0.5 0.4 Neutrophils # (Auto) 7.0 5.5 Lymphocytes # (Auto) 1.2 0.7 Monocytes # (Auto) 0.7 0.5 Eosinophils # (Auto) 0.0 0.2 Basophils # (Auto) 0.0 0.0 CBC Comment DIFF FINAL AUTO DIFF Differential Comment AUTO DIFF CONFIRMED Sodium Level 136 135 Potassium Level 3.7 4.0 Chloride Level 104 105 Carbon Dioxide Level 26.7 23.6 Anion Gap 5 6 Blood Urea Nitrogen 7 9 Creatinine 0.77 0.76 Estimat Glomerular Filtration 78 80 Rate Random Glucose 108 80 Lactic Acid Level 0.7 Calcium Level 9.1 9.2 Total Bilirubin 0.4 Aspartate Amino Transf 55 (AST/SGOT) Alanine Aminotransferase 55 (ALT/SGPT) Alkaline Phosphatase 117 Total Protein 6.4 Albumin 2.6 Urine Color YELLOW Urine Turbidity HAZY Urine pH 6.0 Urine Specific [place] 1.022 Urine Protein TRACE Urine Glucose (UA) NEG Urine Ketones NEG Urine Occult Blood SMALL Urine Nitrite NEG Urine Bilirubin NEG Urine Urobilinogen LESS THAN 2.0 Urine Leukocyte Esterase LARGE Urine RBC 5 Urine WBC 27 Urine Squamous Epithelial 7 Cells Urine Amorphous Sediment RARE Urine Bacteria RARE Urine Mucus FEW Microscopic Urinalysis Comment CATH-CULTURE IND Date/Time Procedure Status Source Growth 08/15/16 19:08 Urine Culture - Preliminary Resulted Urine Catheterized Urine NO GROWTH IN 24 HOURS. 08/15/16 18:00 Aerobic Blood Culture - Preliminary Resulted Blood Peripheral NO GROWTH IN 1 DAY 08/15/16 18:00 Anaerobic Blood Culture - Preliminary Resulted Blood Peripheral NO GROWTH IN 1 DAY 08/15/16 17:45 Gram Stain - Final Resulted Wound Hand 08/15/16 17:45 Wound Culture - Preliminary Resulted Streptococcus Species Result Diagram: 08/16/16 0652 08/16/16 0652 Assessment and Plan Problem List: (1) Abscess Status: Acute Plan: The abscess of the left hand appears to have been adequately drained in the ER. Begin daily wound care protocol including soaking the area in a solution of betadine and water and applying povidone iodine ointment and nonstick dressing. This is ordered and discussed with RN. Physician Attestation The exam, history, and the medical decision-making described in the above note were completed with the assistance of the mid-level provider. I reviewed and agree with the findings presented. I attest that I had a [id number] encounter with the patient on the same day, and personally performed and documented my assessment and findings in the medical record. Rosalinda Munoz M.D. Aminata Byrnes Aug 16, 2016 17:41
[2016-08-16 20:00] VITALS: BP 108/63; PULSE 63; RESP 16; TEMP 98.2; O2SAT 93
[2016-08-17] VITALS (7 sets, daily range): BP systolic 126–137; BP diastolic 58–76; PULSE 46–69; RESP 16–20; TEMP 97.4–99.3; O2SAT 93–97
[2016-08-17] MEDS: KETOROLAC TROMETHAMINE 30 MG/ML (IVP) VIAL IV PUSH PRN ×2 (02:24→08:28)
[2016-08-17] MEDS ORDERED: HYDROmorphone HCL PF 1 MG/ML VIAL IV PUSH ONE (05:15)
[2016-08-17] MEDS: PIPERACIL-TAZO 4.5 GM PREMIX 100 ML IV SCH ×2 (05:33→10:19)
[2016-08-17] MEDS: VANCOMYCIN 1,000 MG/NS 250 ML IV SCH ×2 (05:35)
[2016-08-17 08:21] LABS: HEMATOCRIT 36.5 % (35.0-46.0); MEAN CELL VOLUME 85.7 FL (80.0-100.0); MEAN CORPUSCULAR HEMOGLOBIN 28.4 PG (27.0-34.0); MEAN CORPUSCULAR HGB CONC 33.1 % (32.0-36.0); PLATELET COUNT 107 TH/MM3 (150-450); RED BLOOD COUNT 4.25 MIL/MM3 (4.00-5.30); RED CELL DISTRIBUTION WIDTH 14.5 % (11.6-17.2); REVIEW FLAG FINAL; WHITE BLOOD COUNT 5.4 TH/MM3 (4.0-11.0)
[2016-08-17] MEDS: POVIDONE IODINE 10% OINT 30 GM TUBE TOPICAL SCH (08:26)
[2016-08-17] MEDS: SODIUM CHLORIDE 0.9% FLUSH 10 ML FLUSH IV FLUSH SCH (08:27)
[2016-08-17 08:36] LABS: BICARBONATE 25.7 MEQ/L (21.0-32.0)
[2016-08-17 08:45] LABS: POTASSIUM 4.5 MEQ/L (3.5-5.1)
[2016-08-17] MEDS ORDERED: ONDANSETRON HCL 4 MG/2 ML VIAL IV PUSH ONE (09:53)
[2016-08-17] MEDS ORDERED: PROPOFOL 200 MG/20 ML AMP IV ONE (09:53)
[2016-08-17] MEDS ORDERED: PHENYLEPH/NS 1000 MCG/10 ML SYR IV ONE (09:53)
[2016-08-17] MEDS ORDERED: LACTATED RINGER'S 1000 ML INJ 1,000 ML IV ONE (09:53)
[2016-08-17] MEDS ORDERED: HYDROmorphone HCL PF 1 MG/ML VIAL IV PUSH PRN (10:00)
--- NOTE | 2016-08-17 12:11 | HHI.PR ---
Subjective Remarks Follow-up for abscess and infection Patient was found sleeping in bed. When I woke her up she is asking me to increase her Dilaudid to 2 mg. I told her that I could not do that and there is need to be an indication. Patient got very upset and stated that she should have went to [facility] because there they give her 4 mg of IV Dilaudid. Patient threaten to leave AMA and I told patient my advice would be to stay in the hospital for treatment of infection and if not infection can worsen which made lead to . Otherwise she had no other complaints. Later when I came out to the patient's room close to her she was yelling down the hallway saying " Beverly Donald I know she hears me." I immediately told charge nurse of this and she threatened to leave AMA. Objective Vitals Vital Signs Date Time Temp Pulse Resp B/P Pulse Ox O2 Delivery O2 Flow Rate FiO2 08/17/16 11:25 59 08/17/16 08:34 Room Air 08/17/16 08:05 97.9 55 16 137/63 96 08/17/16 04:00 98.5 68 18 132/58 93 08/17/16 00:00 99.3 69 18 126/76 93 08/16/16 20:00 98.2 63 16 108/63 93 08/16/16 16:00 99.5 71 18 102/52 90 I/O 08/16/16 08/16/16 08/16/16 08/17/16 08/17/16 08/17/16 07:00 15:00 23:00 07:00 15:00 23:00 Intake Total 120 ml 480 ml 465 ml 620 ml Output Total 100 ml 400 ml Balance 20 ml 480 ml 465 ml 220 ml Intake Oral 120 ml 480 ml 360 ml 0 ml IV Total 105 ml 620 ml Output Urine Total 100 ml 400 ml # Voids 2 4 # Bowel Movements 0 0 0 0 Result Diagram: 08/17/1673208/17/16732 Objective Remarks GENERAL: in NAD SKIN: Right forearm with erythema and mildly hardening of the forearm and abscess. Left hand erythema on the dorsal portion status post I&D. left mullins draining abscess with large opening CARDIOVASCULAR: Regular rate and rhythm without murmurs, gallops, or rubs. RESPIRATORY: Breath sounds equal bilaterally. No accessory muscle use. GASTROINTESTINAL: Abdomen soft, non-tender, nondistended. Medications and IVs Current Medications Sodium Chloride 1,000 ml @ 1,000 mls/hr Q1H ONCE IV Last administered on 16:46; Start 08/15/16 at 16:15; Stop 08/15/16 at 17:14; Status DC Sodium Chloride 1,000 ml @ 1,000 mls/hr Q1H ONCE IV Last administered on 16:47; Start 08/15/16 at 16:15; Stop 08/15/16 at 17:14; Status DC Sodium Chloride 100 ml @ 1,000 mls/hr Q6M ONCE IV Last administered on 18:39; Start 08/15/16 at 16:15; Stop 08/15/16 at 16:20; Status DC Vancomycin HCl 1000 mg/Sodium Chloride 250 ml @ 250 mls/hr ONCE ONCE IV Last administered on 08/15/16 16:45; Start 08/15/16 at 16:15; Stop 08/15/16 at 17:14; Status DC Piperacillin Sod/ Tazobactam Sod (Zosyn 3.375 Gm Premix) 50 ml @ 100 mls/hr ONCE ONCE IV Last administered on 08/15/16 16:45; Start 08/15/16 at 16:15; Stop 08/15/16 at 16:44; Status DC Lidocaine/ Epinephrine (Xylocaine-Epi 1%-1:100,000 Inj) 20 ml ONCE ONCE INFIL Last administered on 08/15/16 16:45; Start 08/15/16 at 16:15; Stop 08/15/16 at 16: 18; Status DC Ketorolac Tromethamine (Toradol Inj) 30 mg ONCE ONCE IV PUSH Last administered on 08/15/16 18:16; Start 08/15/16 at 17:00; Stop 08/15/16 at 17:01; Status DC Sodium Chloride (NS Flush) 2 ml UNSCH PRN IV FLUSH FLUSH AFTER USING IV ACCESS Last administered on 08/16/16 01:03; Start 08/15/16 at 20:15 Sodium Chloride (NS Flush) 2 ml BID IV FLUSH Last administered on 08/17/16 08: 27; Start 08/15/16 at 21:00 Naloxone HCl 0.4 mg 0.4 mg UNSCH PRN IV SEE LABEL COMMENTS; Start 08/15/16 at 20 :15 Pharmacy Profile Note 0 ml @ 0 mls/hr UNSCH OTHER ; Start 08/15/16 at 20:15 Piperacillin Sod/ Tazobactam Sod (Zosyn 4.5 Gm Premix) 100 ml @ 200 mls/hr Q6H IV Last administered on 08/17/16 10:19; Start 08/15/16 at 23:00 Ketorolac Tromethamine 30 mg 30 mg Q6H PRN IV PUSH pain >5 or fever Last administered on 08/17/16 08:28; Start 08/15/16 at 20:30 Vancomycin HCl/ Sodium Chloride (Vancomycin Inj/ NS 250 ml Inj) 250 ml @ 250 mls/hr Q12H IV Last administered on 08/17/16 05:35; Start 08/16/16 at 05:00 Miscellaneous Information SPECIFIC LAB TO BE DRAWN:VANCO TROUGH DATE... ONCE ONCE .XX ; Start 08/17/16 at 16:45; Stop 08/17/16 at 16:46 Sodium Chloride (NS 500 ml Inj) 500 ml @ 500 mls/hr BOLUS ONCE IV Last administered on 08/16/16 01:02; Start 08/16/16 at 00:15; Stop 08/16/16 at 01:14; Status DC Povidone Iodine (Betadine 10% Oint) 1 applic DAILY TOPICAL Last administered on 08/17/16 08:26; Start 08/16/16 at 16:00 Hydromorphone HCl (Dilaudid Pf Inj) 0.2 mg ONCE ONCE IV PUSH Last administered on 08/17/16 05:31; Start 08/17/16 at 05:15; Stop 08/17/16 at 05:16; Status DC Hydromorphone HCl (Dilaudid Pf Inj) 1 mg Q8HR PRN IV PUSH pain 6-10 Last administered on 08/17/16 10:20; Start 08/17/16 at 10:00 A/P Problem List: (1) IVDU (intravenous drug user) ICD Code: F19.90 Status: Acute (2) Abscess ICD Code: L02.91 Status: Acute (3) Transaminitis ICD Code: R74.0 Status: Acute Assessment and Plan 51 y/o female with a history of chronic pain, IVDA, and anxiety presents to the ED with left hand and RFA pain, redness and swelling that began 1 week ago. Abscess, left hand and possible right forearm and LLE, I&D in ED of left hand, left mullins abscess -IV antibiotics Vanco and Zosyn, pharmacy to dose - Possible small abscess in the superior soft tissues of the right forearm and hypoechoic area could be small abscess. -Wound culture shows from her left hand showed strep viridans. Patient scheduled to go to the OR this afternoon. He will current IV antibiotics. Transaminitis, AST 55 ALT 55, chronic -History of hepatitis C. Noncompliant. -Asymptomatic. -Patient will need to follow up out patient for treatment of hep c abnormal UA -Urine cultures negative. IVDA, chronic - encouraged to quit -Patient was started on IV Dilaudid 1 mg, but wanted increase dosage. I did not see any indication for high dose of IV Dilaudid especially no signs of withdrawal. We'll also need to wean off of IV Dilaudid. DVT prophylaxis: SCDs Discharge Planning Patient threatened to leave AMA. She was educated extensively on the risks of leaving AGAINST MEDICAL ADVICE which may lead to worsening of infection that can lead to . Tammie Donald MD Aug 17, 2016 12:11
--- NOTE | 2016-08-17 14:03 | HHI.PR ---
Immediate Post Op Note Procedure Date: Aug 17, 2016 Pre Op Diagnosis: (1) Abscess of forearm, right Post Op Diagnosis: (1) Abscess of forearm, right Surgeon: Rosalinda Munoz [employer] Supervisor(s): None Procedure: Incision and drainage of abscess of the right forearm. Anesthesia: General Drains: None Tourniquet time (min at mmHg) NA Patient to: PACU Patient Condition: Good Date/Time of Procedure: SEE SURGICAL CARE RECORD Rosalinda Munoz MD Aug 17, 2016 14:02
[2016-08-17] MEDS ORDERED: DO NOT ADM ANY ANTICOAGULANT DRUGS PRN (14:10)
[2016-08-17] MEDS ORDERED: MIDAZOLAM HCL 2 MG/2 ML VIAL ONE (14:13)
[2016-08-17] MEDS ORDERED: fentaNYL CITRATE 250 MCG/5 ML AMP ONE (14:14)
[2016-08-17] MEDS ORDERED: *HYDROmorphone PF 1 MG VIAL PERIprocedural Use ONLY ONE (14:24)
--- NOTE | 2016-08-17 16:02 | HHI.PR ---
Subjective Subjective Notes "When am I going to the OR?" "Can I have pain meds?" Objective Vitals/I&O Vital Signs Date Time Temp Pulse Resp B/P Pulse Ox O2 Delivery O2 Flow Rate FiO2 08/17/16 14:45 46 20 126/68 97 Nasal Cannula 2 08/17/16 14:10 97.8 Labs Laboratory Tests Test 08/17/16 07:33 White Blood Count 5.4 Red Blood Count 4.25 Hemoglobin 12.1 Hematocrit 36.5 Mean Corpuscular Volume 85.7 Mean Corpuscular Hemoglobin 28.4 Mean Corpuscular Hemoglobin 33.1 Concent Red Cell Distribution Width 14.5 Platelet Count 107 Mean Platelet Volume 10.8 Sodium Level 139 Potassium Level 4.5 Chloride Level 106 Carbon Dioxide Level 25.7 Anion Gap 7 Blood Urea Nitrogen 10 Creatinine 0.90 Estimat Glomerular Filtration 65 Rate Random Glucose 96 Calcium Level 8.8 Date/Time Procedure Status Source Growth 08/17/16 13:50 Gram Stain Received Abscess Nose (Outside) Pending 08/17/16 13:50 Wound Culture Received Abscess Nose (Outside) Pending 08/17/16 13:50 Fungal Smear Received Abscess Other Pending 08/17/16 13:50 Fungal Culture Received Abscess Other Pending 08/17/16 13:50 Acid Fast Stain Received Abscess Other Pending 08/17/16 13:50 Mycobacterial Culture Received Abscess Other Pending 08/15/16 19:08 Urine Culture - Final Complete Urine Catheterized Urine NO GROWTH IN 48 HOURS. 08/15/16 18:00 Aerobic Blood Culture - Preliminary Resulted Blood Peripheral NO GROWTH IN 2 DAYS 08/15/16 18:00 Anaerobic Blood Culture - Preliminary Resulted Blood Peripheral NO GROWTH IN 2 DAYS 08/15/16 17:45 Gram Stain - Final Resulted Wound Hand 08/15/16 17:45 Wound Culture - Preliminary Resulted Viridans Streptococcus Grp Radiology Last 48 hours Impressions Chest X-Ray 08/15/16 1615 Signed Impressions: Service Date/Time: Monday, August 15, 2016 16:55 - CONCLUSION: No acute infiltrates. Joshua Ambriz MD Upper Extremity Ultrasound 08/15/16 0000 Signed Impressions: Service Date/Time: Monday, August 15, 2016 22:41 - CONCLUSION: 1. Possible small abscess in the superior soft tissues of the right forearm. Joshua Terrell MD Lower Extremity Ultrasound 08/15/16 0000 Signed Impressions: Service Date/Time: Monday, August 15, 2016 22:48 - CONCLUSION: Superficial hypoechoic area could be small abscess. Joshua Terrell MD Cardiovascular: Regular Lungs: Clear Abdomen: Non-distended, Non-tender Extremities: Other (see below) Narrative Exam RIGHT Forearm---- large abscess LEFT hand--- large open abscess with dressing LEFT leg: open abscess draining spontaneously; dressing removed; repacked with saline soaked 2x2 and covered with 4x4 A/P Assessment and Plan 51 year old female with RIGHT forearm abscess; LEFT hand abscess; LEFT leg abscess -Dressing ordered for LEFT leg; saline soaked 2x2; cover with 4x4 and secure paper tape -RIGHT forearm and LEFT hand management per Dr. Munoz -Okay to shower from GS standpoint -GS clear for DC -Discussed with Janki Cobb Aug 17, 2016 16:02
[2016-08-17] MEDS ORDERED: PHARMACY ORDERED LAB ONE (16:45)
[2016-08-18] MEDS ORDERED: POVIDONE IODINE 10% SOLN 118 ML BOTTLE TOP SCH (09:00)
--- NOTE | 2016-08-18 20:09 | MP ---
cc: KATHE SNYDER M.D. DATE OF SURGERY: 08/18/2016. PREOPERATIVE DIAGNOSIS: Abscess of the right forearm. POSTOPERATIVE DIAGNOSIS: Abscess of the right forearm. OPERATIVE PROCEDURE PERFORMED: Incision and drainage of abscess of the right forearm. ANESTHESIA: General. SURGEON: Kathe Snyder M.D. INDICATIONS FOR THE PROCEDURE: 51-year-old female with history of multiple abscesses. FINDINGS: The patient had an abscess on the right forearm. There were no other abscesses noted. The abscess itself was well contained. At the completion of the procedure, it had completely drained and packed. OPERATIVE TIME: Approximately 20 minutes. DESCRIPTION OF THE PROCEDURE IN DETAIL: The patient was seen preoperatively where the site and side were identified and marked. The patient was then taken to the operating room and placed in a supine position. Her identity was checked against the arm band and the consent form site and side confirmed, time-out called prior to beginning the procedure. The right upper extremity was prepped with alcohol and then Hibiclens and draped in the usual sterile fashion. The area be incised was outlined with a marking pen as an elliptical incision removing the infected tissue. A 15 blade was used to make the incision down through skin down to the subcutaneous tissue. Pus was immediately encountered and cultured. The elliptical tissue was excised and discarded. The wound was suctioned and probed and there were no additional cavities noted. No loculations. It was copiously irrigated with saline and packed with iodoform packing, half-inch. It was then dressed with Telfa soaked in Betadine solution, 4x4s and Mendel. The patient was then taken from the operating room to the recovery room in satisfactory condition having tolerated the procedure well. Postoperative instructions include the keeping arm elevated and wound care. MD DALY Alvarado/ONDINA /2:18 PM /8:07 PM
== END 2016-08-17 15:57 | disposition left against medical advice (07) | DRG 571 ==
LOC: NEPC 14:40 → NEDA 19:24 → N04A 21:34
PROVIDERS: ADMIT Family Medicine; ATTEND Family Medicine
PROC: 0H9GXZX Drainage of Left Hand Skin, External Approach, Diagnostic (ICD-10-PCS; principal; 2016-08-15)
PROC: 0HBFXZZ Excision of Right Hand Skin, External Approach (ICD-10-PCS; 2016-08-17)
DX: L02.512 Cutaneous abscess of left hand (principal); L02.413 Cutaneous abscess of right upper limb; N39.0 Urinary tract infection, site not specified; L02.416 Cutaneous abscess of left lower limb; L03.116 Cellulitis of left lower limb; F32.9 Major depressive disorder, single episode, unspecified; F41.9 Anxiety disorder, unspecified; M54.2 Cervicalgia; M54.9 Dorsalgia, unspecified; G89.29 Other chronic pain; Z86.14 Personal history of Methicillin resistant Staphylococcus aureus infection; F17.210 Nicotine dependence, cigarettes, uncomplicated; B19.20 Unspecified viral hepatitis C without hepatic coma; Z91.19 Patient's noncompliance with other medical treatment and regimen; F11.90 Opioid use, unspecified, uncomplicated; R74.0 Nonspecific elevation of levels of transaminase and lactic acid dehydrogenase [LDH]; M06.9 Rheumatoid arthritis, unspecified
CPT/HCPCS: 10060; 71010; 76882; 76937; 80048; 80053; 81001; 83605; 85025; 85027; 87015; 87040; 87070; 87086; 87102; 87116; 87205; 87206; 96361; 96365; 96368; 96375; J1170; J1885; J2250; J2370; J2405; J2543; J3010; J3370; J7030; J7040; J7050; J7120

== ENCOUNTER 2016-09-06 17:26 | Emergency (ER) | payer SELFPAY ==
[~2016-09-06] VITALS: Ht 170.2 cm; Wt 66.0 kg
[2016-09-06 17:27] VITALS: BP 110/58; PULSE 69; RESP 16; TEMP 98; O2SAT 97
== END 2016-09-06 17:40 | disposition left against medical advice (07) ==
LOC: NED 17:35
DX: R21 Rash and other nonspecific skin eruption (principal); Z53.21 Procedure and treatment not carried out due to patient leaving prior to being seen by health care provider
CPT/HCPCS: 99281

== ENCOUNTER 2016-12-15 10:25 | Emergency (ER) | payer SELFPAY ==
[~2016-12-15] VITALS: Ht 170.2 cm; Wt 72.0 kg
[~2016-12-15 10:25] MED LIST changes: +CLIN150C14 PO; -CLIN1CAP5 PO
[2016-12-15 10:34] VITALS: BP 145/75; PULSE 69; RESP 16; TEMP 98.1; O2SAT 98
[2016-12-15] MEDS ORDERED: HYDR4TAB PO (10:45)
[2016-12-15] MEDS ORDERED: DIAZ10 PO (10:45)
[2016-12-15] MEDS ORDERED: BACT800T5 PO (10:59)
[2016-12-15] MEDS ORDERED: CEPH-460 PO (10:59)
--- NOTE | 2016-12-15 11:00 | PD ---
HPI Chief Complaint: Skin Problem Time Seen by Provider: 10:43 Travel History International Travel<30 days: No Contact w/Intl Traveler<30days: No Traveled to known affect area: No History of Present Illness HPI 51 yo F c/o L forearm abscess x 2. Duration 1 week. Pt squeezed one and puss drained. Pt denies fever. Hydrogen peroxide was not helpful at home. Pt has had similar abscesses before and reports improvement with antibiotics. Onset gradual. Timing constant. PFSH Past Medical History Arthritis: Yes (RA) Asthma: No Autoimmune Disease: No Blood Disorders: No Anxiety: Yes Depression: Yes Heart Rhythm Problems: No Cancer: No Cardiovascular Problems: No High Cholesterol: No Chemotherapy: No Chest Pain: No Congestive Heart Failure: No COPD: No Cerebrovascular Accident: No Diabetes: No Diminished Hearing: No Endocrine: No Gastrointestinal Disorders: No GERD: No Glaucoma: No Genitourinary: No Headaches: No Hepatitis: No Hiatal Hernia: No Hypertension: No Immune Disorder: No Implanted Vascular Access Dvce: No Kidney Stones: No Musculoskeletal: Yes (CHRONIC BACK PAIN and neck pain) Neurologic: No Psychiatric: Yes Reproductive: No Respiratory: No Integumentary: Yes (mrsa) Migraines: No Myocardial Infarction: No Radiation Therapy: No Renal Failure: No Seizures: No Sickle Cell Disease: No Sleep Apnea: No Thyroid Disease: No Ulcer: No Menopausal: Yes : 9 Para: 1 : 8 Past Surgical History Abdominal Surgery: No AICD: No Appendectomy: No Arteriovenous Shunt: No Cardiac Surgery: No Cholecystectomy: No Ear Surgery: No Endocrine Surgery: No Eye Surgery: No Genitourinary Surgery: No Gynecologic Surgery: Yes (fibroid tumor removed, HYSTERECTOMY) Hysterectomy: Yes (PARTIAL) Insulin Pump: No Joint Replacement: No Neurologic Surgery: No Oral Surgery: No Pacemaker: No Thoracic Surgery: No Other Surgery: Yes (FIBROID TUMOR REMOVED.,left arm/wrist) Social History Alcohol Use: No Tobacco Use: Yes (1PPD) Substance Use: Yes (HX IV DRUG USE) Allergies-Medications (Allergen,Severity, Reaction): Coded Allergies: morphine (Unverified Allergy, Intermediate, SWELLING, 12/15/16) *MDRO Multi-Drug Resistant Organism (Verified Adverse Reaction, Unknown, ) 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 More proximally there is a 2cm L forearm raised erythematous lesion without fluctuance. HEAD: Atraumatic. Normocephalic. EYES: Pupils equal and round. No scleral icterus. No injection or drainage. ENT: No nasal bleeding or discharge. Mucous membranes pink and moist. NECK: Trachea midline. No JVD. CARDIOVASCULAR: Regular rate and rhythm. RESPIRATORY: No accessory muscle use. Clear to auscultation. Breath sounds equal bilaterally. GASTROINTESTINAL: Abdomen soft, non-tender, nondistended. Hepatic and splenic margins not palpable. MUSCULOSKELETAL: Extremities without clubbing, cyanosis, or edema. No obvious deformities. NEUROLOGICAL: Awake and alert. No obvious cranial nerve deficits. Motor grossly within normal limits. Five out of 5 muscle strength in the arms and legs. Normal speech. PSYCHIATRIC: Appropriate mood and affect; insight and judgment normal. Data Data Last Documented VS Vital Signs Date Time Temp Pulse Resp B/P (MAP) Pulse Ox O2 Delivery O2 Flow Rate FiO2 12/15/16 10:34 98.1 69 16 145/75 (98) 98 VS reviewed MDM Medical Decision Making Medical Screen Exam Complete: Yes Emergency Medical Condition: Yes Medical Record Reviewed: Yes Differential Diagnosis abscess, cellulitis, IVDA Narrative Course Pt refuses I&D Pt request abx only Pt denies IVDA No symptom c/w endocarditis Bactrim and keflex script Diagnosis Primary Impression: Cellulitis of left lower extremity Additional Impression: Abscess of left forearm Referrals: PLEASE RETURN TO ER IN 2 DAYS FOR WOUND CHECK 2 days Additional Instructions: You have a choice when it comes to health care, and we are glad that you chose [facility]. Hopefully, we have met your expectations on today's visit. You are welcome to return to [facility] at any time, as we are committed to meeting the health care needs of our community. Med/Other Pt SpecificInfo: Prescription(s) given Scripts Cephalexin (Keflex) 500 Mg Cap 500 MG PO Q8H for Infection for 14 Days, #42 CAP 0 Refills Prov: Shankar Wright MD 12/15/16 Sulfamethoxazole-Trimethoprim (Bactrim DS) 800-160 Mg Tab 1 TAB PO BID for Infection for 14 Days, #28 TAB 0 Refills Prov: Shankar Wright MD 12/15/16 Disposition: 01 DISCHARGE HOME Condition: Stable Shankar Wright MD Dec 15, 2016 11:00
== END 2016-12-15 11:11 | disposition home or self-care (01) ==
LOC: PHED 10:25
DX: L02.414 Cutaneous abscess of left upper limb (principal); L03.116 Cellulitis of left lower limb; F17.200 Nicotine dependence, unspecified, uncomplicated
CPT/HCPCS: 99284

== ENCOUNTER 2017-01-26 17:44 | Emergency (ER) | payer SELFPAY ==
[~2017-01-26 17:44] MED LIST changes: +CEPH-460 PO; -CLIN150C14 PO; +DIAZ10 PO; +HYDR4TAB PO
[2017-01-26 17:51] VITALS: BP 118/61; PULSE 83; RESP 20; TEMP 98.7; O2SAT 98
[2017-01-26] MEDS ORDERED: ALPR.25 PO (18:02)
[2017-01-26] MEDS ORDERED: SODIUM CHLORIDE 0.9% FLUSH 10 ML FLUSH IVF PRN (18:15)
[2017-01-26 19:09] LABS: AUTOMATED NEUTROPHIL # 4.8 TH/MM3 (1.8-7.7); BASOPHIL # 0.1 TH/MM3 (0-0.2); BASOPHIL % 0.7 % (0.0-2.0); EOSINOPHIL # 0.4 TH/MM3 (0-0.4); EOSINOPHIL % 5.4 % (0.0-4.0); HEMATOCRIT 36.2 % (35.0-46.0); HEMOGLOBIN 11.6 GM/DL (11.6-15.3); LYMPH % 24.6 % (9.0-44.0); MEAN CELL VOLUME 87.2 FL (80.0-100.0); MEAN CORPUSCULAR HEMOGLOBIN 27.9 PG (27.0-34.0); MEAN PLATELET VOLUME 9.6 FL (7.0-11.0); MONO % 9.5 % (0.0-8.0); MONOCYTE # 0.8 TH/MM3 (0-0.9); NEUT % 59.8 % (16.0-70.0); PLATELET COUNT 151 TH/MM3 (150-450); RED BLOOD COUNT 4.16 MIL/MM3 (4.00-5.30); RED CELL DISTRIBUTION WIDTH 14.7 % (11.6-17.2); WHITE BLOOD COUNT 8.1 TH/MM3 (4.0-11.0)
[2017-01-26 19:15] LABS: CHLORIDE 104 MEQ/L (98-107); SODIUM (NA) 140 MEQ/L (136-145)
[2017-01-26 19:17] LABS: CALCIUM 9.4 MG/DL (8.5-10.1)
[2017-01-26 19:18] LABS: BICARBONATE 31.9 MEQ/L (21.0-32.0); BLOOD UREA NITROGEN 11 MG/DL (7-18); GLUCOSE,RANDOM 127 MG/DL (74-106)
[2017-01-26 19:20] VITALS: BP 125/75; PULSE 85; RESP 18; TEMP 98.8; O2SAT 96
[2017-01-26 19:21] LABS: GLOMERULAR FILTRATION RATE 88 ML/MIN (>89)
--- NOTE | 2017-01-26 19:25 | PD ---
HPI Chief Complaint: Skin Problem Time Seen by Provider: 18:01 Travel History International Travel<30 days: No Contact w/Intl Traveler<30days: No Traveled to known affect area: No History of Present Illness HPI Patient is a 51 year old female presents to the ER for evaluation of right upper extremity abscess and cellulitis. Patient has been changing her history about when she last used IV drugs, she tells me that it's been 2 weeks ago. She denies any fevers. Her states they went somewhere else and had the abscess drained and was placed on Bactrim. The patient denies ever being on antibiotics for this infection. She denies any fevers denies any alcohol ingestion tonight denies any substance abuse tonight. Patient history is constantly evolving, and she appears to be intoxicated on some substance now. This limits her history. She denies any chest pain shortness of breath. PFSH Past Medical History Arthritis: Yes (RA) Asthma: No Autoimmune Disease: No Blood Disorders: No Anxiety: Yes Depression: Yes Heart Rhythm Problems: No Cancer: No Cardiovascular Problems: No High Cholesterol: No Chemotherapy: No Chest Pain: No Congestive Heart Failure: No COPD: No Cerebrovascular Accident: No Diabetes: No Diminished Hearing: No Endocrine: No Gastrointestinal Disorders: No GERD: No Glaucoma: No Genitourinary: No Headaches: No Hepatitis: No Hiatal Hernia: No Hypertension: No Immune Disorder: No Implanted Vascular Access Dvce: No Kidney Stones: No Musculoskeletal: Yes (CHRONIC BACK PAIN and neck pain) Neurologic: No Psychiatric: Yes Reproductive: No Respiratory: No Integumentary: Yes (mrsa) Migraines: No Myocardial Infarction: No Radiation Therapy: No Renal Failure: No Seizures: No Sickle Cell Disease: No Sleep Apnea: No Thyroid Disease: No Ulcer: No ?: Not Menopausal: Yes : 9 Para: 1 : 8 Past Surgical History Abdominal Surgery: No AICD: No Appendectomy: No Arteriovenous Shunt: No Cardiac Surgery: No Cholecystectomy: No Ear Surgery: No Endocrine Surgery: No Eye Surgery: No Genitourinary Surgery: No Hysterectomy: Yes (PARTIAL) Insulin Pump: No Joint Replacement: No Neurologic Surgery: No Oral Surgery: No Pacemaker: No Thoracic Surgery: No Other Surgery: Yes (FIBROID TUMOR REMOVED.,left arm/wrist) Social History Alcohol Use: No Tobacco Use: Yes (1PPD) Substance Use: No (HX IV DRUG USE, DENIES) Allergies-Medications (Allergen,Severity, Reaction): Coded Allergies: morphine (Unverified Allergy, Intermediate, SWELLING, 01/26/17) *MDRO Multi-Drug Resistant Organism (Verified Adverse Reaction, Unknown, 01/26/17) MRSA (arm wound) - 01/2009 & 02/2014 Reported Meds & Prescriptions Reported Meds & Active Scripts Active Reported Xanax (Alprazolam) 0.25 Mg Tab Unknown Dose PO Q4H PRN Hydromorphone (Hydromorphone HCl) 4 Mg Tab 4 Mg PO Q6H PRN Review of Systems Except as stated in HPI: all other systems reviewed are Neg Physical Exam Narrative GENERAL: Well-developed, well-nourished, appears much older than stated age, nontoxic appearance. SKIN: Focused skin assessment warm/dry. There is a lumpy bumpy appearance of the right upper extremity from the antecubital fossa down to the wrist and no discrete abscess collection is felt, there is cellulitis on the entirety of the volar aspect of the right forearm. Examination of the left forearm does show discrete cellulitis and induration near the antecubital fossa. There is no generalized rash. HEAD: Atraumatic. Normocephalic. EYES: Pupils equal and round. No scleral icterus. No injection or drainage. ENT: No nasal bleeding or discharge. Mucous membranes pink and moist. NECK: Trachea midline. No JVD. CARDIOVASCULAR: Regular rate and rhythm. No murmur appreciated. RESPIRATORY: No accessory muscle use. Clear to auscultation. Breath sounds equal bilaterally. GASTROINTESTINAL: Abdomen soft, non-tender, nondistended. Hepatic and splenic margins not palpable. MUSCULOSKELETAL: No obvious deformities. No clubbing. No cyanosis. No edema. NEUROLOGICAL: Awake and alert. No obvious cranial nerve deficits. Motor grossly within normal limits. Normal speech. PSYCHIATRIC: Appropriate mood and affect; insight and judgment normal. Data Data Last Documented VS Vital Signs Date Time Temp Pulse Resp B/P (MAP) Pulse Ox O2 Delivery O2 Flow Rate FiO2 01/26/17 17:51 98.7 83 20 118/61 (80) 98 Orders Orders Basic Metabolic Panel (Bmp) (01/26/17 18:08) Complete Blood Count With Diff (01/26/17 18:08) Ecg Monitoring (01/26/17 18:08) Iv Access Insert/Monitor (01/26/17 18:08) Oximetry (01/26/17 18:08) Oxygen Administration (01/26/17 18:08) Sodium Chloride 0.9% Flush (Ns Flush) (01/26/17 18:15) Ed Poc Ultrasound (01/26/17 ) Lactic Acid (01/26/17 19:02) Act Partial Throm Time (Ptt) (01/26/17 19:02) Prothrombin Time / Inr (Pt) (01/26/17 19:02) Chest, Single Ap (01/26/17 ) Drug Screen, Random Urine (01/26/17 19:04) Alcohol (Ethanol) (01/26/17 18:55) Labs Laboratory Tests Test 01/26/17 18:55 01/26/17 19:00 White Blood Count 8.1 TH/MM3 Red Blood Count 4.16 MIL/MM3 Hemoglobin 11.6 GM/DL Hematocrit 36.2 % Mean Corpuscular Volume 87.2 FL Mean Corpuscular Hemoglobin 27.9 PG Mean Corpuscular Hemoglobin Concent 32.0 % Red Cell Distribution Width 14.7 % Platelet Count 151 TH/MM3 Mean Platelet Volume 9.6 FL Neutrophils (%) (Auto) 59.8 % Lymphocytes (%) (Auto) 24.6 % Monocytes (%) (Auto) 9.5 % Eosinophils (%) (Auto) 5.4 % Basophils (%) (Auto) 0.7 % Neutrophils # (Auto) 4.8 TH/MM3 Lymphocytes # (Auto) 2.0 TH/MM3 Monocytes # (Auto) 0.8 TH/MM3 Eosinophils # (Auto) 0.4 TH/MM3 Basophils # (Auto) 0.1 TH/MM3 CBC Comment DIFF FINAL Differential Comment [facility] Medical Decision Making Medical Screen Exam Complete: Yes Emergency Medical Condition: Yes Differential Diagnosis Altered mental status, cellulitis, abscess, sepsis, Narrative Course Patient roomed in emergency department, her only complaint is of swelling and infection to the right forearm, initial plan was for ultrasound-guided axis of the left forearm however when infection was discovered here as well there was contraindicated. Attempts were made to the right EJ which yielded a flash of blood but no IV access could be obtained here. There was no visualized or ultrasound identified left EJ. Decision was then made to place a right IJ. Discussed briefly with the patient the risks including pneumothorax, she is significantly altered and I do not think she is able to give her own consent this time. Normal saline has been ordered, vital signs do not show any hemodynamic instability. She has one Sirs criteria respiratory rate of 20. Full panel of labs chest x-ray was ordered. The patient was discussed with Dr. Silva at 1900 to follow the workup and disposition the patient properly. Procedures Procedure Narrative CENTRAL VENOUS LINE: The site was prepped with chlorhexidine and sterilely draped. It was infiltrated with 1% lidocaine plain. The deep vein was cannulated using normal Seldinger technique. A 7 Green[place]ic triple lumen central line was placed in the right IJ site and secured with simple interrupted suture. The site was sterilely dressed. The patient tolerated the procedure well. Chest x-ray was reviewed and shows adequate placement, no pneumothorax visualized. Official read pending ULTRASOUND SOFT TISSUE: Views were obtained of the right upper extremity and left upper extremity of the areas described above, there is significant cobblestoning with trace edema in the subcutaneous tissue but no discernible abscess collection was identified in either extremity. Barak Shaw MD Jan 26, 2017 19:25
[2017-01-26 19:26] LABS: PROTHROMBIN TIME - PATIENT 10.4 SEC (9.8-11.6)
--- NOTE | 2017-01-26 19:27 | RADRPT ---
EXAM DATE/TIME: 01/26/2017 19:17 [facility] COMPARISON: No previous studies available for comparison. INDICATIONS : Central line placement. MEDICAL HISTORY : Arthritis. Smoker. SURGICAL HISTORY : Hysterectomy. ENCOUNTER: Initial ACUITY: 1 day PAIN SCORE: Non-responsive. LOCATION: Bilateral chest FINDINGS: A single view of the chest demonstrates mild basilar atelectasis. No effusion. No pneumothorax. Right central line in superior vena cava. No pneumothorax CONCLUSION: 1. Mild basilar atelectasis. No effusion. Right central line in superior vena cava. Sherman Velásquez MD on January 26, 2017 at 19:23 Board Certified Radiologist. This report was verified electronically.
[2017-01-26] MEDS ORDERED: CLINDAMYCIN 600 MG/DEX PREMIX 50 ML IV ONE (19:45)
[2017-01-26 20:02] VITALS: BP 130/74; PULSE 80; RESP 18; TEMP 98.8; O2SAT 97
[2017-01-26] MEDS ORDERED: BACT800T5 PO (20:09)
[2017-01-26] MEDS ORDERED: CEPH-460 PO (20:09)
--- NOTE | 2017-01-26 20:09 | PD ---
Physical Exam Narrative Patient signed out to me by Dr. Shaw. Please see his documentation for complete details. Briefly, patient has history of IVDA and has had multiple bouts of cellulitis. She comes in with a few days of redness to both arms. She says she has not been feeling well, but denies fever at home. Exam show erythema to the right forearm as well as left forearm, warm to the touch. There is no evidence of abscess. Data Data Last Documented VS Vital Signs Date Time Temp Pulse Resp B/P (MAP) Pulse Ox O2 Delivery O2 Flow Rate FiO2 01/26/17 20:02 98.8 80 18 130/74 (92) 97 Room Air Orders Orders Basic Metabolic Panel (Bmp) (01/26/17 18:08) Complete Blood Count With Diff (01/26/17 18:08) Ecg Monitoring (01/26/17 18:08) Iv Access Insert/Monitor (01/26/17 18:08) Oximetry (01/26/17 18:08) Oxygen Administration (01/26/17 18:08) Sodium Chloride 0.9% Flush (Ns Flush) (01/26/17 18:15) Ed Poc Ultrasound (01/26/17 ) Lactic Acid (01/26/17 19:02) Act Partial Throm Time (Ptt) (01/26/17 19:02) Prothrombin Time / Inr (Pt) (01/26/17 19:02) Chest, Single Ap (01/26/17 ) Drug Screen, Random Urine (01/26/17 19:04) Alcohol (Ethanol) (01/26/17 18:55) Clindamycin 600 Mg/Dex Premix (Cleocin 6 (01/26/17 19:45) Labs Laboratory Tests Test 01/26/17 18:55 01/26/17 19:00 01/26/17 19:10 White Blood Count 8.1 TH/MM3 Red Blood Count 4.16 MIL/MM3 Hemoglobin 11.6 GM/DL Hematocrit 36.2 % Mean Corpuscular Volume 87.2 FL Mean Corpuscular Hemoglobin 27.9 PG Mean Corpuscular Hemoglobin Concent 32.0 % Red Cell Distribution Width 14.7 % Platelet Count 151 TH/MM3 Mean Platelet Volume 9.6 FL Neutrophils (%) (Auto) 59.8 % Lymphocytes (%) (Auto) 24.6 % Monocytes (%) (Auto) 9.5 % Eosinophils (%) (Auto) 5.4 % Basophils (%) (Auto) 0.7 % Neutrophils # (Auto) 4.8 TH/MM3 Lymphocytes # (Auto) 2.0 TH/MM3 Monocytes # (Auto) 0.8 TH/MM3 Eosinophils # (Auto) 0.4 TH/MM3 Basophils # (Auto) 0.1 TH/MM3 CBC Comment DIFF FINAL Differential Comment Blood Urea Nitrogen 11 MG/DL Creatinine 0.70 MG/DL Random Glucose 127 MG/DL Calcium Level 9.4 MG/DL Sodium Level 140 MEQ/L Potassium Level 4.0 MEQ/L Chloride Level 104 MEQ/L Carbon Dioxide Level 31.9 MEQ/L Anion Gap 4 MEQ/L Estimat Glomerular Filtration Rate 88 ML/MIN Ethyl Alcohol Level LESS THAN 3 MG/DL Prothrombin Time 10.4 SEC Prothromb Time International Ratio 1.0 RATIO Activated Partial Thromboplast Time 25.4 SEC Lactic Acid Level 0.9 mmol/L Urine Opiates Screen POS Urine Barbiturates Screen NEG Urine Amphetamines Screen NEG Urine Benzodiazepines Screen POS Urine Cocaine Screen NEG Urine Cannabinoids Screen NEG MDM Supervised Visit with REN: No Narrative Course Vitals are within normal limits. She is afebrile, pulse is within normal limits. Patient given a dose of Clindamycin. She is offered admission, but says she does not want to stay. Her says they cannot afford Clindamycin. She is given prescriptions for Keflex and Bactrim. He is advised to bring her back if there is any worsening of the infection. He is comfortable with this plan. Diagnosis Primary Impression: Cellulitis, upper arm Patient Instructions: Cellulitis (ED), General Instructions Additional Instruction: Avoid drug use and injecting yourself with needles. Take all of your antibiotic. Return at any time for any worsening symptoms. Scripts Sulfamethoxazole-Trimethoprim (Bactrim DS) 800-160 Mg Tab 1 TAB PO BID for Infection, #20 TAB 0 Refills Prov: Ashley Silva MD 01/26/17 Cephalexin (Keflex) 500 Mg Cap 500 MG PO Q6H for Infection for 10 Days, #40 CAP 0 Refills Prov: Ashley Silva MD 01/26/17 Disposition: 01 DISCHARGE HOME Condition: Stable Ashley Silva MD Jan 26, 2017 20:09
== END 2017-01-26 21:21 | disposition home or self-care (01) ==
LOC: PHED 17:44
DX: L03.114 Cellulitis of left upper limb (principal); Z72.0 Tobacco use
CPT/HCPCS: 36556; 71010; 80048; 80307; 83605; 85025; 85610; 85730; 96374

== ENCOUNTER 2017-02-02 18:48 | Emergency (ER) | payer SELFPAY ==
[~2017-02-02] VITALS: Ht 170.2 cm; Wt 81.0 kg
[~2017-02-02 18:48] MED LIST changes: +ALPR.25 PO; -DIAZ10 PO
[2017-02-02 18:58] VITALS: BP 126/70; PULSE 93; RESP 12; TEMP 98.4; O2SAT 95
[2017-02-02] MEDS ORDERED: IBUP1TAB7 PO (19:12)
[2017-02-02] MEDS ORDERED: DILA4TAB10 PO (19:12)
--- NOTE | 2017-02-02 19:38 | PD ---
HPI . Neck pain Chief Complaint: Pain: Acute or Chronic Time Seen by Provider: 19:17 Travel History International Travel<30 days: No Contact w/Intl Traveler<30days: No Traveled to known affect area: No History of Present Illness HPI History is very difficult to understand with this patient. She looks "stoned." She presents complaining with neck pain. I was not able to determine exactly how long she had had the neck pain but she states that it is long-term. She states that she has had a "fusion" but has not completed therapy. She states that she simply chose not to return for the continuation of her treatment. Nonetheless, she comes in tonight complaining with severe paraspinous and trapezial neck pain. She does not have any concerning signs or symptoms such as fever or upper extremity weakness/paresthesias. I was unable to determine whether or not there were any modifying factors. PFSH Past Medical History Arthritis: Yes (RA) Asthma: No Autoimmune Disease: No Blood Disorders: No Anxiety: Yes Depression: Yes Heart Rhythm Problems: No Cancer: No Cardiovascular Problems: No High Cholesterol: No Chemotherapy: No Chest Pain: No Congestive Heart Failure: No COPD: No Cerebrovascular Accident: No Diabetes: No Diminished Hearing: No Endocrine: No Gastrointestinal Disorders: No GERD: No Glaucoma: No Genitourinary: No Headaches: No Hepatitis: No Hiatal Hernia: No Hypertension: No Immune Disorder: No Implanted Vascular Access Dvce: No Kidney Stones: No Musculoskeletal: Yes (CHRONIC BACK PAIN and neck pain) Neurologic: No Psychiatric: Yes Reproductive: No Respiratory: No Integumentary: Yes (mrsa) Immunizations Current: Yes Migraines: No Myocardial Infarction: No Radiation Therapy: No Renal Failure: No Seizures: No Sickle Cell Disease: No Sleep Apnea: No Thyroid Disease: No Ulcer: No Tetanus Vaccination: < 5 Years Influenza Vaccination: No ?: Not Menopausal: Yes : 9 Para: 1 : 8 Past Surgical History Abdominal Surgery: No AICD: No Appendectomy: No Arteriovenous Shunt: No Cardiac Surgery: No Cholecystectomy: No Ear Surgery: No Endocrine Surgery: No Eye Surgery: No Genitourinary Surgery: No Hysterectomy: Yes (PARTIAL) Insulin Pump: No Joint Replacement: No Neurologic Surgery: No Oral Surgery: No Pacemaker: No Thoracic Surgery: No Other Surgery: Yes (FIBROID TUMOR REMOVED.,left arm/wrist) Social History Alcohol Use: No Tobacco Use: Yes (1PPD) Substance Use: No (HX IV DRUG USE, DENIES) Allergies-Medications (Allergen,Severity, Reaction): Coded Allergies: morphine (Unverified Allergy, Intermediate, SWELLING, 02/02/17) *MDRO Multi-Drug Resistant Organism (Verified Adverse Reaction, Unknown, 02/02/17) MRSA (arm wound) - 01/2009 & 02/2014 Reported Meds & Prescriptions Reported Meds & Active Scripts Active Reported Ibuprofen 800 Mg Tab 800 Mg PO Q8H PRN Dilaudid (Hydromorphone HCl) 4 Mg Tab 4 Mg PO Q4H PRN Xanax (Alprazolam) 0.25 Mg Tab 2 Mg PO BID PRN Review of Systems Except as stated in HPI: all other systems reviewed are Neg HENT: Positive: Neck Pain Physical Exam Narrative GENERAL: Awake and alert. Tearful. Slurred speech. SKIN: Warm and dry. No redness or warmth. HEAD: Normocephalic/atraumatic. EYES: Pupils are equal. Extraocular movements are intact. NECK: Normal range of motion. She does not seem tender to palpation of either the bronchus processes or the musculature of the neck. CARDIOVASCULAR: Regular rate and rhythm. RESPIRATORY: Nonlabored respirations. MUSCULOSKELETAL: Atraumatic. NEUROLOGICAL: Nonfocal. Full and equal muscle strength of the upper extremities. PSYCHIATRIC: Tearful. Data Data Last Documented VS Vital Signs Date Time Temp Pulse Resp B/P (MAP) Pulse Ox O2 Delivery O2 Flow Rate FiO2 02/02/17 19:13 (88) 02/02/17 18:58 98.4 93 12 95 Orders Orders Ed Discharge Order (02/02/17 19:28) [facility] Medical Decision Making Medical Screen Exam Complete: Yes Emergency Medical Condition: Yes Medical Record Reviewed: Yes (patient has been seen here many times for problems related to IV drug abuse. I have reviewed e-forcse. She is regularly given prescriptions for Dilaudid, Xanax and ibuprofen. She last received Dilaudid gram tablets total number 9D on 01/22/17. She does get her prescriptions from a single provider.) Differential Diagnosis Differential diagnosis of neck pain includes but is not limited to muscle spasm/ pain, arthritis, spinal stenosis, HNP, epidural abscess Narrative Course Patient presents with neck pain. It seems chronic in nature. She does not have any concerning physical findings. She is an IV drug user but has no fever. This patient is already receiving prescriptions for Dilaudid and Valium. She will be discharged home with instructions to follow-up with her pain management doctor for ongoing pain management. Diagnosis Primary Impression: Neck pain Referrals: Pain Management call for appointment Patient Instructions: General Instructions, Neck Pain (ED) Departure Forms: Tests/Procedures Additional Instructions: See your pain management doctor for ongoing pain management. Disposition: DISCHARGE HOME Condition: Stable Chandni Abebe MD Feb 02, 2017 19:38
== END 2017-02-02 19:35 | disposition home or self-care (01) ==
LOC: PHEFT 18:48
DX: M54.2 Cervicalgia (principal); M06.9 Rheumatoid arthritis, unspecified; F41.9 Anxiety disorder, unspecified; F32.9 Major depressive disorder, single episode, unspecified; F17.200 Nicotine dependence, unspecified, uncomplicated; Z79.899 Other long term (current) drug therapy; Z88.5 Allergy status to narcotic agent
CPT/HCPCS: 99281

== ENCOUNTER 2017-03-14 16:53 | Emergency (ER) | payer SELFPAY ==
[~2017-03-14] VITALS: Ht 170.2 cm; Wt 76.5 kg
[~2017-03-14 16:53] MED LIST changes: -BACT800T5 PO; -CEPH-460 PO; +DILA4TAB10 PO; -HYDR4TAB PO; +IBUP1TAB7 PO
[2017-03-14 16:59] VITALS: BP 120/65; PULSE 71; RESP 18; TEMP 97.7; O2SAT 96
--- NOTE | 2017-03-14 18:12 | RADRPT ---
EXAM DATE/TIME: 03/14/2017 17:54 [facility] COMPARISON: CHEST SINGLE AP, January 26, 2017, 19:17. INDICATIONS : Flu like symptoms. Congestion and productive cough for two days. MEDICAL HISTORY : Arthritis. Methicillin-resistant Staphylococcus aureus. Anxiety. SURGICAL HISTORY : Hysterectomy. Left wrist surgery. ENCOUNTER: Initial ACUITY: 2 days PAIN SCORE: 0/10 LOCATION: Bilateral chest FINDINGS: A single view of the chest demonstrates the lungs to be symmetrically aerated without evidence of mas s, infiltrate or effusion. The cardiomediastinal contours are unremarkable. Degenerative changes and scoliosis of the thoraco-lumbar spine are noted. CONCLUSION: 1. No acute cardiopulmonary disease. 2. Degenerative changes and scoliosis of the thoraco-lumbar spine. Barak Chiang MD on March 14, 2017 at 18:08 Board Certified Radiologist. This report was verified electronically.
[2017-03-14] MEDS ORDERED: BENZ100 PO (18:18)
[2017-03-14] MEDS ORDERED: AMOX875T PO (18:18)
[2017-03-14] MEDS ORDERED: ALBUAER3 INH (18:18)
--- NOTE | 2017-03-14 18:23 | PD ---
HPI Chief Complaint: Cold / Flu Symptoms Time Seen by Provider: 17:29 Travel History International Travel<30 days: No Contact w/Intl Traveler<30days: No Traveled to known affect area: No History of Present Illness HPI 51-year-old female that presents to the ED for evaluation of cold-like symptoms. Per patient she's had cold like symptoms for about a week. Has chest discomfort with cough. Cough is productive. Denies any urinary or bowel movement issues. No abdominal pain. Pain in her back secondary to the coughing. History of back problems taking Dilaudid and Xanax for anxiety. Does have a history of smoking and smokes heavily of smoke. Denies any sick contacts. Did not get the flu shot this year. Denies any recent travel. History of MRSA and allergy to morphine. Pain per patient is 7 out of 10. States having some ear pain as well as sore throat as well. PFSH Past Medical History Arthritis: Yes (RA) Asthma: No Autoimmune Disease: No Blood Disorders: No Anxiety: Yes Depression: Yes Heart Rhythm Problems: No Cancer: No Cardiovascular Problems: No High Cholesterol: No Chemotherapy: No Chest Pain: No Congestive Heart Failure: No COPD: No Cerebrovascular Accident: No Diabetes: No Diminished Hearing: No Endocrine: No Gastrointestinal Disorders: No GERD: No Glaucoma: No Genitourinary: No Headaches: No Hepatitis: No Hiatal Hernia: No Heparin Induced Thrombocytopen: No Hypertension: No Immune Disorder: No Implanted Vascular Access Dvce: No Kidney Stones: No Musculoskeletal: Yes (CHRONIC BACK PAIN and neck pain) Neurologic: No Psychiatric: Yes Reproductive: No Respiratory: No Integumentary: Yes (mrsa) Immunizations Current: Yes Migraines: No Myocardial Infarction: No Radiation Therapy: No Renal Failure: No Seizures: No Sickle Cell Disease: No Sleep Apnea: No Thyroid Disease: No Ulcer: No Tetanus Vaccination: < 5 Years ?: Not Menopausal: Yes : 9 Para: 1 : 8 Past Surgical History Abdominal Surgery: No AICD: No Appendectomy: No Arteriovenous Shunt: No Cardiac Surgery: No Cholecystectomy: No Ear Surgery: No Endocrine Surgery: No Eye Surgery: No Genitourinary Surgery: No Hysterectomy: Yes (PARTIAL) Insulin Pump: No Joint Replacement: No Neurologic Surgery: No Oral Surgery: No Pacemaker: No Thoracic Surgery: No Other Surgery: Yes (FIBROID TUMOR REMOVED.,left arm/wrist) Social History Alcohol Use: No Tobacco Use: Yes (1PPD) Substance Use: No (HX IV DRUG USE, DENIES) Allergies-Medications (Allergen,Severity, Reaction): Coded Allergies: morphine (Unverified Allergy, Intermediate, SWELLING, 03/14/17) *MDRO Multi-Drug Resistant Organism (Verified Adverse Reaction, Unknown, ) MRSA (arm wound) - 01/2009 & 02/2014 Reported Meds & Prescriptions Reported Meds & Active Scripts Active Amoxicillin 875 Mg Tab 875 Mg PO BID 10 Days Proair Hfa 8.5 GM Inh (Albuterol Sulfate) 90 Mcg/Act Aer 2 Puff INH Q4-6H PRN 108 mcg/actuation Tessalon Perles (Benzonatate) 100 Mg Cap 100 Mg PO TID PRN Reported Dilaudid (Hydromorphone HCl) 4 Mg Tab 4 Mg PO Q4H PRN Xanax (Alprazolam) 0.25 Mg Tab 2 Mg PO BID PRN Review of Systems Except as stated in HPI: all other systems reviewed are Neg Physical Exam Narrative GENERAL: Well-nourished, well-developed patient in no apparent distress. SKIN: Warm and dry. HEAD: Atraumatic. Normocephalic. EYES: Pupils equal and round reactive to light and accommodation. No scleral icterus. No injection or drainage. ENT: No nasal bleeding or discharge. Mucous membranes pink and moist. TMs are red and bulging bilaterally. Right worse than left.. No mastoid tenderness. Ear canals are intact bilaterally. No lymphadenopathy. Nostril mucosa is red and moist with clear mucus noted. No sinus tenderness to palpation noted. Tonsils are not enlarged or swollen. No ulvua Deviation. Tongue is midline. NECK: Trachea midline. No JVD. No meningeal signs noted CARDIOVASCULAR: Regular rate and rhythm. RESPIRATORY: No accessory muscle use. Clear to auscultation. Breath sounds equal bilaterally. GASTROINTESTINAL: Abdomen soft, non-tender, nondistended. Hepatic and splenic margins not palpable. MUSCULOSKELETAL: Extremities without clubbing, cyanosis, or edema. No obvious deformities. NEUROLOGICAL: Awake and alert. No obvious cranial nerve deficits. Motor grossly within normal limits. Five out of 5 muscle strength in the arms and legs. Normal speech. PSYCHIATRIC: Appropriate mood and affect; insight and judgment normal. Data Data Last Documented VS Vital Signs Date Time Temp Pulse Resp B/P (MAP) Pulse Ox O2 Delivery O2 Flow Rate FiO2 03/14/17 16:59 97.7 71 18 120/65 (83) 96 Orders Orders Chest, Single Ap (03/14/17 ) Ed Discharge Order (03/14/17 18:19) MDM Medical Decision Making Medical Screen Exam Complete: Yes Emergency Medical Condition: Yes Medical Record Reviewed: Yes Interpretation(s) Chest x-ray negative for acute cardiopulmonary disease. Differential Diagnosis Otitis media versus otitis externa versus sinusitis versus bronchitis versus pneumonia Narrative Course 50-year-old female that presents to the ED for evaluation of cold like symptoms. Patient was properly examined and was found to have signs and symptoms which appear to be consistent with otitis media bilaterally. Likely viral. Chest x-ray was done to rule out any sign of pneumonia. Chest x-ray was negative for this. Patient was treated with amoxicillin for the otitis media, Tessalon Perles, albuterol inhaler to help her symptoms. Told to follow closely with PCP. See ED worsening symptoms. Diagnosis Primary Impression: Otitis media Qualified Codes: H66.003 - Acute suppurative otitis media without spontaneous rupture of ear drum, bilateral Additional Impression: Bronchitis Patient Instructions: General Instructions Additional Instructions: Motrin and Tylenol for pain and fever. You can use [id number] antihistamine as well as well as Mucinex as needed for runny nose and congestion. Cough drops for cough as needed. Drink plenty of fluids. Follow-up with PCP. See ED for worsening symptoms. Med/Other Pt SpecificInfo: Prescription(s) given Scripts Amoxicillin (Amoxicillin) 875 Mg Tab 875 MG PO BID for Infection for 10 Days, #20 TAB 0 Refills Prov: Marah Estrada MD 03/14/17 Albuterol 8.5 GM Inh (Proair Hfa 8.5 GM Inh) 90 Mcg/Act Aer 2 PUFF INH Q4-6H Y for SHORTNESS OF BREATH, #1 INHALER 0 Refills 108 mcg/actuation Prov: Marah Estrada MD 03/14/17 Benzonatate (Tessalon Perles) 100 Mg Cap 100 MG PO TID Y for COUGH, #15 CAP 0 Refills Prov: Marah Estrada MD 03/14/17 Disposition: 01 DISCHARGE HOME Condition: Stable Kimo Tucker Mar 14, 2017 18:23
== END 2017-03-14 18:31 | disposition home or self-care (01) ==
LOC: PHED 16:53 → PHEFT 18:31
DX: H66.003 Acute suppurative otitis media without spontaneous rupture of ear drum, bilateral (principal); J40 Bronchitis, not specified as acute or chronic; F17.210 Nicotine dependence, cigarettes, uncomplicated
CPT/HCPCS: 71045; 99283

== ENCOUNTER 2017-04-10 16:20 | Emergency (ER) | payer SELFPAY ==
[~2017-04-10] VITALS: Ht 170.2 cm; Wt 80.7 kg
[~2017-04-10 16:20] MED LIST changes: +ALBUAER3 INH; +AMOX875T PO; +BENZ100 PO; -IBUP1TAB7 PO
[2017-04-10 16:36] VITALS: BP 142/84; PULSE 92; RESP 16; TEMP 98.8; O2SAT 97
== END 2017-04-10 17:00 | disposition left against medical advice (07) ==
LOC: PHED 16:20
DX: Z53.21 Procedure and treatment not carried out due to patient leaving prior to being seen by health care provider (principal)
CPT/HCPCS: 99281

== ENCOUNTER 2017-04-25 13:13 | Emergency (ER) | payer SELFPAY ==
[~2017-04-25] VITALS: Ht 170.2 cm; Wt 84.0 kg
[2017-04-25 13:20] VITALS: BP 142/72; PULSE 79; RESP 18; TEMP 98.4; O2SAT 98
[2017-04-25 15:31] VITALS: BP 121/67; PULSE 70; RESP 16; O2SAT 96
--- NOTE | 2017-04-25 15:45 | PD ---
HPI Chief Complaint: Abdominal Pain Time Seen by Provider: 15:20 Travel History International Travel<30 days: No Contact w/Intl Traveler<30days: No Traveled to known affect area: No History of Present Illness HPI The patient was seen and examined in the presence of the nurse. This patient is appearing quite overmedicated. She takes Dilaudid for chronic pain. She has arms covered with track ontiveros. She says she has not injected in 6 months. Her chief complaint is weight gain. She complains of 50 pounds of weight gain in one month. PFSH Past Medical History Arthritis: Yes (RA) Asthma: No Autoimmune Disease: No Blood Disorders: No Anxiety: Yes Depression: Yes Heart Rhythm Problems: No Cancer: No Cardiovascular Problems: No High Cholesterol: No Chemotherapy: No Chest Pain: No Congestive Heart Failure: No COPD: No Cerebrovascular Accident: No Diabetes: No Diminished Hearing: No Endocrine: No Gastrointestinal Disorders: No GERD: No Glaucoma: No Genitourinary: No Headaches: No Hepatitis: No Hiatal Hernia: No Heparin Induced Thrombocytopen: No Hypertension: No Immune Disorder: No Implanted Vascular Access Dvce: No Kidney Stones: No Musculoskeletal: Yes (CHRONIC BACK PAIN and neck pain) Neurologic: No Psychiatric: Yes Reproductive: No Respiratory: No Integumentary: Yes (mrsa) Immunizations Current: Yes Migraines: No Myocardial Infarction: No Radiation Therapy: No Renal Failure: No Seizures: No Sickle Cell Disease: No Sleep Apnea: No Thyroid Disease: No Ulcer: No Tetanus Vaccination: < 5 Years Influenza Vaccination: Yes ?: Not Menopausal: Yes : 9 Para: 1 : 8 Past Surgical History Abdominal Surgery: No AICD: No Appendectomy: No Arteriovenous Shunt: No Cardiac Surgery: No Cholecystectomy: No Ear Surgery: No Endocrine Surgery: No Eye Surgery: No Genitourinary Surgery: No Gynecologic Surgery: Yes (fibroid tumor removed, HYSTERECTOMY) Hysterectomy: Yes (PARTIAL) Insulin Pump: No Joint Replacement: No Neurologic Surgery: No Oral Surgery: No Pacemaker: No Thoracic Surgery: No Other Surgery: Yes (FIBROID TUMOR REMOVED.,left arm/wrist) Social History Alcohol Use: No Tobacco Use: Yes (1PPD) Substance Use: No (HX IV DRUG USE, DENIES) Allergies-Medications (Allergen,Severity, Reaction): Coded Allergies: morphine (Unverified Allergy, Intermediate, SWELLING, 04/25/17) *MDRO Multi-Drug Resistant Organism (Verified Adverse Reaction, Unknown, ) MRSA (arm wound) - 01/2009 & 02/2014 Reported Meds & Prescriptions Reported Meds & Active Scripts Active Reported Dilaudid (Hydromorphone HCl) 4 Mg Tab 4 Mg PO Q4H PRN Xanax (Alprazolam) 0.25 Mg Tab 2 Mg PO BID PRN Review of Systems General / Constitutional: No: Fever HENT: No: Headaches Cardiovascular: No: Chest Pain or Discomfort Respiratory: No: Cough Physical Exam Narrative GASTROINTESTINAL: Abdomen soft, non-tender, nondistended. Positive bowel sounds. No hepato-splenomegaly, or palpable masses. No guarding. SKIN: Focused skin assessment reveals linear areas of induration but no active infection. RESPIRATORY: Respiratory effort unlabored, no retractions or use of accessory muscles. Breath sounds are clear and symmetric. CARDIOVASCULAR: Regular rate and rhythm without murmur. Extremities showed no edema or varicosities. Data Data Last Documented VS Vital Signs Date Time Temp Pulse Resp B/P (MAP) Pulse Ox O2 Delivery O2 Flow Rate FiO2 04/25/17 15:38 04/25/17 15:31 70 16 96 Room Air 04/25/17 13:20 98.4 MDM Medical Decision Making Medical Screen Exam Complete: Yes Emergency Medical Condition: Yes Medical Record Reviewed: Yes Differential Diagnosis Overmedication, hypothyroidism, depression Narrative Course I have reviewed the patient's electronic medical record. This patient primarily needs a family physician follow-up to do a head to toe physical. She has a complaint of weight gain. Nothing emergent. She is overmedicated and I recommended weaning off her Dilaudid slowly. She was not interested in that. We gave her the information for [facility] Diagnosis Primary Impression: Weight gain Additional Impression: Medication side effect Patient Instructions: General Instructions Departure Forms: Tests/Procedures Additional Instructions: The patient was advised to follow up with their physician and return if they worsen. Med/Other Pt SpecificInfo: Other Disposition: 01 DISCHARGE HOME Condition: Stable Adalberto Oconnor MD Apr 25, 2017 15:44
== END 2017-04-25 15:47 | disposition home or self-care (01) ==
LOC: PHED 13:13
DX: R63.5 Abnormal weight gain (principal); G89.29 Other chronic pain; M06.9 Rheumatoid arthritis, unspecified; Z72.0 Tobacco use
CPT/HCPCS: 99281

== ENCOUNTER 2017-05-15 15:41 | Emergency (ER) | payer SELFPAY ==
[~2017-05-15] VITALS: Ht 170.2 cm; Wt 87.0 kg
[~2017-05-15 15:41] MED LIST changes: -ALBUAER3 INH; -AMOX875T PO; -BENZ100 PO
[2017-05-15 15:49] VITALS: BP 139/61; PULSE 86; RESP 16; TEMP 98.8; O2SAT 98
[2017-05-15] MEDS ORDERED: SULFAMETHOXAZOLE-TRIMETHOPRIM DS 800-160 MG TAB PO ONE (16:15)
[2017-05-15] MEDS ORDERED: CEPHALEXIN MONOHYDRATE 500 MG CAP PO ONE (16:15)
--- NOTE | 2017-05-15 16:18 | PD ---
HPI Chief Complaint: Skin Problem Time Seen by Provider: 16:08 Travel History International Travel<30 days: No Contact w/Intl Traveler<30days: No Traveled to known affect area: No History of Present Illness HPI 51-year-old female with a history of IV drug use, chronic back pain presents emergency department for evaluation of bilateral lower extremity swelling and abscesses of the upper extremities. Says that in particular an abscess on the left upper extremity has been enlarging over 4 days. Patient denies fever, chills. Patient does not have a primary care physician. Patient states that she smokes 1.5 pack cigarettes per day. Patient does not drink alcohol. Patient admits to having a medical history of anxiety and takes medication for this. Denies any recent IV drug use says she does follow pain management for her pain. Last tetanus vaccine in 2012. PFSH Past Medical History Arthritis: Yes (RA) Asthma: No Autoimmune Disease: No Blood Disorders: No Anxiety: Yes Depression: Yes Heart Rhythm Problems: No Cancer: No Cardiovascular Problems: No High Cholesterol: No Chemotherapy: No Chest Pain: No Congestive Heart Failure: No COPD: No Cerebrovascular Accident: No Diabetes: No Diminished Hearing: No Endocrine: No Gastrointestinal Disorders: No GERD: No Glaucoma: No Genitourinary: No Headaches: No Hepatitis: No Hiatal Hernia: No Heparin Induced Thrombocytopen: No Hypertension: No Immune Disorder: No Implanted Vascular Access Dvce: No Kidney Stones: No Musculoskeletal: Yes (CHRONIC BACK PAIN and neck pain) Neurologic: No Psychiatric: Yes Reproductive: No Respiratory: No Integumentary: Yes (mrsa) Immunizations Current: Yes Migraines: No Myocardial Infarction: No Radiation Therapy: No Renal Failure: No Seizures: No Sickle Cell Disease: No Sleep Apnea: No Thyroid Disease: No Ulcer: No Influenza Vaccination: No ?: Not Menopausal: Yes : 9 Para: 1 : 8 Past Surgical History Abdominal Surgery: No AICD: No Appendectomy: No Arteriovenous Shunt: No Cardiac Surgery: No Cholecystectomy: No Ear Surgery: No Endocrine Surgery: No Eye Surgery: No Genitourinary Surgery: No Gynecologic Surgery: Yes (fibroid tumor removed, HYSTERECTOMY) Hysterectomy: Yes (PARTIAL) Insulin Pump: No Joint Replacement: No Neurologic Surgery: No Oral Surgery: No Pacemaker: No Thoracic Surgery: No Other Surgery: Yes (FIBROID TUMOR REMOVED.,left arm/wrist) Social History Alcohol Use: No Tobacco Use: Yes (1PPD) Substance Use: No (HX IV DRUG USE, DENIES) Allergies-Medications (Allergen,Severity, Reaction): Coded Allergies: morphine (Unverified Allergy, Intermediate, SWELLING, 05/15/17) *MDRO Multi-Drug Resistant Organism (Verified Adverse Reaction, Unknown, ) MRSA (arm wound) - 01/2009 & 02/2014 Reported Meds & Prescriptions Reported Meds & Active Scripts Active Bactrim DS (Sulfamethoxazole-Trimethoprim) 800-160 Mg Tab 1 Tab PO BID Keflex (Cephalexin) 500 Mg Cap 500 Mg PO Q8H 10 Days Reported Dilaudid (Hydromorphone HCl) 4 Mg Tab 4 Mg PO Q4H PRN Xanax (Alprazolam) 0.25 Mg Tab 2 Mg PO BID PRN Review of Systems Except as stated in HPI: all other systems reviewed are Neg Physical Exam Narrative GENERAL: Well-developed, well-nourished, lethargic female, mildly anxious SKIN: Focused skin assessment warm/dry. Left upper extremity-ulnar aspects of wrist with a 3-4 cm round area of induration with some fluctuance. No spontaneous fluid expression. No puncta Right upper extremity-multiple scars, track ontiveros. Multiple areas of erythema with some induration. Right lower extremity-medial aspect with a healing wound with surrounding erythema. Indurated without expression of fluid. No lymph angiopathic spread HEAD: Atraumatic. Normocephalic. EYES: Pupils equal and round. No scleral icterus. No injection or drainage. ENT: No nasal bleeding or discharge. Mucous membranes pink and moist. NECK: Trachea midline. No JVD. CARDIOVASCULAR: Regular rate and rhythm. No murmur appreciated. RESPIRATORY: No accessory muscle use. Clear to auscultation. Breath sounds equal bilaterally. GASTROINTESTINAL: Abdomen soft, non-tender, nondistended. Hepatic and splenic margins not palpable. MUSCULOSKELETAL: No obvious deformities. No clubbing. No cyanosis. No edema. Homans sign negative bilateral lower extremities NEUROLOGICAL: Awake and alert. No obvious cranial nerve deficits. Motor grossly within normal limits. Normal speech. PSYCHIATRIC: Appropriate mood and affect; insight and judgment normal. Data Data Last Documented VS Vital Signs Date Time Temp Pulse Resp B/P (MAP) Pulse Ox O2 Delivery O2 Flow Rate FiO2 4/4/18 17:30 05/15/17 16:50 77 16 98 Room Air 05/15/17 15:49 98.8 Orders Orders Complete Blood Count With Diff (05/15/17 16:08) Basic Metabolic Panel (Bmp) (05/15/17 16:08) Sulfamet-Trimeth Ds 800-160 Mg (Bactrim (05/15/17 16:15) Cephalexin (Keflex) (05/15/17 16:15) Tetanus/Diphtheria Tox Adult (Tetanus/Di (05/15/17 17:30) Ed Discharge Order (05/15/17 17:22) Labs Laboratory Tests Test 05/15/17 16:40 White Blood Count 8.0 TH/MM3 Red Blood Count 4.61 MIL/MM3 Hemoglobin 12.8 GM/DL Hematocrit 39.0 % Mean Corpuscular Volume 84.4 FL Mean Corpuscular Hemoglobin 27.7 PG Mean Corpuscular Hemoglobin Concent 32.8 % Red Cell Distribution Width 13.3 % Platelet Count 161 TH/MM3 Mean Platelet Volume 9.4 FL Neutrophils (%) (Auto) 69.3 % Lymphocytes (%) (Auto) 17.4 % Monocytes (%) (Auto) 8.6 % Eosinophils (%) (Auto) 3.4 % Basophils (%) (Auto) 1.3 % Neutrophils # (Auto) 5.5 TH/MM3 Lymphocytes # (Auto) 1.4 TH/MM3 Monocytes # (Auto) 0.7 TH/MM3 Eosinophils # (Auto) 0.3 TH/MM3 Basophils # (Auto) 0.1 TH/MM3 CBC Comment DIFF FINAL Differential Comment Blood Urea Nitrogen 11 MG/DL Creatinine 0.73 MG/DL Random Glucose 124 MG/DL Calcium Level 9.2 MG/DL Sodium Level 139 MEQ/L Potassium Level 3.9 MEQ/L Chloride Level 105 MEQ/L Carbon Dioxide Level 31.0 MEQ/L Anion Gap 3 MEQ/L Estimat Glomerular Filtration Rate 83 ML/MIN MDM Medical Decision Making Medical Screen Exam Complete: Yes Emergency Medical Condition: Yes Differential Diagnosis Pedal edema, abscess, cellulitis, sepsis Narrative Course 51-year-old female presents emergency department for evaluation of bilateral lower extremity edema and left upper extremity infection. Patient appears to be on her feet chronically, she does not appear to wear shoes on a daily basis. Vital signs are stable. Physical exam findings consistent with a well-developed, well-nourished 51-year- old female slightly anxious. Bilateral upper extremities with multiple areas of erythema with underlying induration. Multiple scars (previous abscesses?), Multiple track ontiveros over upper and lower extremities. Lower extremities with only scant edema. My attending and I evaluated this patient together. Dr. Chandler did not feel that these areas of concern were amenable to incision and drainage today. I spoke with the nurse, Cyndee, who states that as she was going into evaluate the patient, patient took 1 of her medications we believe is her anxiety medication. CBC and BMP ordered for evaluation. Bactrim and Keflex ordered for treatment in the emergency department today. Bactrim and Keflex prescriptions for outpatient use. Tetanus vaccine administered. Labs appear stable. No leukocytosis. Patient should follow-up with the primary care physician for further treatment and evaluation of her wounds. She should follow-up regarding her alleged weight gain and bilateral lower extremity edema. Diagnosis Primary Impression: Cellulitis of left upper extremity Referrals: [facility] Additional Instructions: Take all medications as prescribed to avoid complications. Follow-up with [facility] for your care. Scripts Sulfamethoxazole-Trimethoprim (Bactrim DS) 800-160 Mg Tab 1 TAB PO BID for Infection, #20 TAB 0 Refills Prov: Jennifer Chandler DO 05/15/17 Cephalexin (Keflex) 500 Mg Cap 500 MG PO Q8H for Infection for 10 Days, #30 CAP 0 Refills Prov: Jennifer Chandler DO 05/15/17 Disposition: 01 DISCHARGE HOME Condition: Stable [place] Avelar May 15, 2017 16:17
--- NOTE | 2017-05-15 16:48 | PD ---
Physical Exam Date Seen by Provider: May 15, 2017 Data Data Last Documented VS Vital Signs Date Time Temp Pulse Resp B/P (MAP) Pulse Ox O2 Delivery O2 Flow Rate FiO2 05/15/17 16:50 77 16 116/54 (74) 98 Room Air 05/15/17 15:49 98.8 Orders Orders Complete Blood Count With Diff (05/15/17 16:08) Basic Metabolic Panel (Bmp) (05/15/17 16:08) Sulfamet-Trimeth Ds 800-160 Mg (Bactrim (05/15/17 16:15) Cephalexin (Keflex) (05/15/17 16:15) Tetanus/Diphtheria Tox Adult (Tetanus/Di (05/15/17 17:30) Labs Laboratory Tests Test 05/15/17 16:40 White Blood Count 8.0 TH/MM3 Red Blood Count 4.61 MIL/MM3 Hemoglobin 12.8 GM/DL Hematocrit 39.0 % Mean Corpuscular Volume 84.4 FL Mean Corpuscular Hemoglobin 27.7 PG Mean Corpuscular Hemoglobin Concent 32.8 % Red Cell Distribution Width 13.3 % Platelet Count 161 TH/MM3 Mean Platelet Volume 9.4 FL Neutrophils (%) (Auto) 69.3 % Lymphocytes (%) (Auto) 17.4 % Monocytes (%) (Auto) 8.6 % Eosinophils (%) (Auto) 3.4 % Basophils (%) (Auto) 1.3 % Neutrophils # (Auto) 5.5 TH/MM3 Lymphocytes # (Auto) 1.4 TH/MM3 Monocytes # (Auto) 0.7 TH/MM3 Eosinophils # (Auto) 0.3 TH/MM3 Basophils # (Auto) 0.1 TH/MM3 CBC Comment DIFF FINAL Differential Comment Blood Urea Nitrogen 11 MG/DL Creatinine 0.73 MG/DL Random Glucose 124 MG/DL Calcium Level 9.2 MG/DL Sodium Level 139 MEQ/L Potassium Level 3.9 MEQ/L Chloride Level 105 MEQ/L Carbon Dioxide Level 31.0 MEQ/L Anion Gap 3 MEQ/L Estimat Glomerular Filtration Rate 83 ML/MIN [facility] Medical Record Reviewed: Yes Supervised Visit with REN: Yes Interpretation(s) Vital Signs Date Time Temp Pulse Resp B/P (MAP) Pulse Ox O2 Delivery O2 Flow Rate FiO2 05/15/17 16:50 77 16 116/54 (74) 98 Room Air 05/15/17 15:49 98.8 86 16 139/61 (87) 98 CBC & BMP Diagram 05/15/17 16:40 Calcium Level 9.2 Differential Diagnosis Cellulitis, abscess, IV drug abuse Narrative Course I, Dr. Chandler, have reviewed the advance practice practitioner's documentation and am in agreement, met with the patient face to face, made the diagnosis, and the medical decision making was done by me. *My assessment and Findings: Abscess and cellulitis of left upper extremity -patient with minimal areas of fluctuance over abscesses, patient does not want abscess open and drained, plan to do trial with antibiotics, signs and symptoms of when to return to the emergency room was reviewed patient detail. Patient does report that her tetanus is up-to-date. Diagnosis Primary Impression: Cellulitis of left upper extremity Additional Impression: Abscess of left forearm Additional Instruction: Please follow up with your primary care doctor in 2-3 days Return to the ER if symptoms worsen or progress Return to the ER as needed Please take all antibiotics as prescribed, return to the emergency room if symptoms worsen or progress or if you develop any fever or chills Will need reevaluation of your abscesses in 48 hours. Scripts Sulfamethoxazole-Trimethoprim (Bactrim DS) 800-160 Mg Tab 1 TAB PO BID for Infection, #20 TAB 0 Refills Prov: Jennifer Chandler DO 05/15/17 Cephalexin (Keflex) 500 Mg Cap 500 MG PO Q8H for Infection for 10 Days, #30 CAP 0 Refills Prov: Jennifer Chandler DO 05/15/17 Condition: Stable Jennifer Chandler DO May 15, 2017 16:48
[2017-05-15 16:50] VITALS: BP 116/54; PULSE 77; RESP 16; O2SAT 98
[2017-05-15 17:09] LABS: AUTOMATED NEUTROPHIL # 5.5 TH/MM3 (1.8-7.7); BASOPHIL # 0.1 TH/MM3 (0-0.2); BASOPHIL % 1.3 % (0.0-2.0); EOSINOPHIL # 0.3 TH/MM3 (0-0.4); EOSINOPHIL % 3.4 % (0.0-4.0); HEMOGLOBIN 12.8 GM/DL (11.6-15.3); LYMPH % 17.4 % (9.0-44.0); LYMPHOCYTE # 1.4 TH/MM3 (1.0-4.8); MEAN CELL VOLUME 84.4 FL (80.0-100.0); MEAN CORPUSCULAR HEMOGLOBIN 27.7 PG (27.0-34.0); MEAN CORPUSCULAR HGB CONC 32.8 % (32.0-36.0); MEAN PLATELET VOLUME 9.4 FL (7.0-11.0); MONO % 8.6 % (0.0-8.0); MONOCYTE # 0.7 TH/MM3 (0-0.9); NEUT % 69.3 % (16.0-70.0); PLATELET COUNT 161 TH/MM3 (150-450); RED BLOOD COUNT 4.61 MIL/MM3 (4.00-5.30); RED CELL DISTRIBUTION WIDTH 13.3 % (11.6-17.2)
[2017-05-15 17:12] LABS: CALCIUM 9.2 MG/DL (8.5-10.1)
[2017-05-15] MEDS ORDERED: CEPH-460 PO (17:12)
[2017-05-15] MEDS ORDERED: BACT800T5 PO (17:12)
[2017-05-15 17:16] LABS: CREATININE 0.73 MG/DL (0.50-1.00)
[2017-05-15] MEDS ORDERED: TETANUS/DIPHTHERIA TOXOID ADULT 0.5 ML VIAL IM ONE (17:30)
== END 2017-05-15 17:30 | disposition home or self-care (01) ==
LOC: PHED 15:41
DX: L03.114 Cellulitis of left upper limb (principal); L02.414 Cutaneous abscess of left upper limb; M06.9 Rheumatoid arthritis, unspecified; F41.9 Anxiety disorder, unspecified; F17.210 Nicotine dependence, cigarettes, uncomplicated; Z88.5 Allergy status to narcotic agent
CPT/HCPCS: 80048; 85025; 99283